=== PATIENT | male | born 1950 | race Caucasian/White ===

== ENCOUNTER 2019-09-17 20:44 | Inpatient (IN) | payer MEDICARE ==
[2019-09-17] MEDS ORDERED: ONDANSETRON 4 MG/2 ML VIAL IVP STA (22:06)
[2019-09-17] MEDS ORDERED: SODIUM CHLORIDE 0.9% 1,000 ML IV STA (22:06)
[2019-09-17] MEDS ORDERED: MORPHINE SULFATE 4 MG/ML SYRINGE IVP STA (22:07)
[2019-09-17] MEDS ORDERED: cloNIDine HCL 0.1 MG TAB PO STA (22:08)
[2019-09-17] MEDS ORDERED: DILTIAZEM DRIP BOLUS FROM BAG 1 MG SOLN IV ONE (22:10)
[2019-09-17] MEDS ORDERED: HEPARIN SODIUM,PORCINE 5,000 UNIT/ML 1 ML VIAL IV ONE (22:10)
[2019-09-17] MEDS ORDERED: HEPARIN SODIUM,PORCINE 5,000 UNIT/ML 1 ML VIAL IV PRN (22:10)
[2019-09-17] MEDS ORDERED: ONDANSETRON 4 MG/2 ML VIAL IVP PRN (22:12)
[2019-09-17] MEDS ORDERED: NALOXONE 0.4 MG/ML 1 ML VIAL IV PRN (22:12)
[2019-09-17] MEDS ORDERED: HEPARIN SOD,PORK IN 0.45% NACL 25,000 UNIT in 0.45% NACL 1 250ML.BAG IV SCH (22:15)
--- NOTE | 2019-09-17 22:29 | ED ---
Lower Extremity Injury HPI - General Chief Complaint: Extremity Injury, Lower Stated Complaint: R Femur Fracture Source: patient, EMS Mode of arrival: EMS Limitations: no limitations - History of Present Illness Initial Comments: Ayush is a 69-year-old gentleman who comes to the ER as a transfer from an outside facility. Patient reports that he fell out of his van today, it was not moving. He immediately had pain in his right hip. He was evaluated an outside hospital where imaging revealed a right femoral neck fracture. Patient states that he does not see a doctor regularly he is not on any medications he does not take aspirin daily. He states he was not drinking with that when this accident occurred he denies any head injury. Denies complaints aside from pain in the right hip. - Related Data Home Medications Medication Instructions Recorded Confirmed No Known Home Medications 09/17/19 09/17/19 Allergies Allergy/AdvReac Type Severity Reaction Status Date / Time No Known Allergies Allergy Verified 09/17/19 22:53 Review of Systems ROS Statement: Those systems with pertinent positive or pertinent negative responses have been documented in the HPI. ROS Other: All systems not noted in ROS Statement are negative. Past Medical History Past Medical History: Eye Disorder Additional Past Medical History / Comment(s): rt inguinal hernia and umbilical hernia, uses otc glasses to read History of Any Multi-Drug Resistant Organisms: None Reported Past Surgical History: Orthopedic Surgery Additional Past Surgical History / Comment(s): arthroscopic lt knee Past Anesthesia/Blood Transfusion Reactions: No Reported Reaction Additional Past Anesthesia/Blood Transfusion Reaction / Comment(s): no hx blood transfusion Past Psychological History: No Psychological Hx Reported Smoking Status: Current every day smoker Past Alcohol Use History: Daily, Heavy Past Drug Use History: Marijuana - Past Family History Mother Family Medical History: Asthma Father Family Medical History: Diabetes Mellitus, Vascular Disorder General Exam - General Exam Comments Initial Comments: Physical Exam GENERAL: Chronically ill-appearing 69-year-old gentleman appears mildly uncomfortable. HENT: Normocephalic, Atraumatic. EYES: PERRL, EOMI PULMONARY: Unlabored respirations. No audible rales rhonchi or wheezing was noted. CARDIOVASCULAR: Regular rate and rhythm ABDOMEN: Soft and nontender with normal bowel sounds. SKIN: Skin is clear with no lesions or rashes and otherwise unremarkable. : Deferred NEUROLOGIC: Patient is alert and oriented x3. Moving all extremities spontaneously MUSCULOSKELETAL: Right leg is shortened, range of motion limited by pain PSYCHIATRIC: Normal psychiatric evaluation. Limitations: no limitations Course Vital Signs 09/17/19 09/17/19 09/17/19 20:47 20:51 21:00 Temperature 98.5 F Pulse Rate 73 Respiratory 16 Rate Blood Pressure 217/119 210/115 O2 Sat by Pulse 100 91 L 94 L Oximetry 09/17/19 09/17/19 21:20 22:57 Temperature Pulse Rate 117 H Respiratory 16 Rate Blood Pressure 181/100 122/92 O2 Sat by Pulse 93 L 94 L Oximetry Medical Decision Making - Medical Decision Making The patient was seen and evaluated, history is obtained from patient and review of outside medical record. Patient had a fall out of his vehicle resulting in a right hip fracture. Patient was transferred here for orthopedic care. Upon my initial evaluation patient was mildly uncomfortable but in no acute distress. Labs and imaging were ordered in anticipation of operative repair. The patient was noted to be hypertensive with blood pressure of 180 systolic - patient states that when he checks his blood pressures usually around 200. He does not take any medications for this. He doesn't follow with a doctor for this. One hour after arrival patient developed tachycardia, EKG was obtained due to tachycardia, EKG obtained at 2203, EKG with a rate of 164 neuro complex irregularly irregular tachycardia consistent with A. fib with RVR. There is ST depression laterally no acute ST elevations. Additional labs including magnesium and troponins were ordered Patient will be treated with Cardizem and heparin. Unlikely the patient will undergo surgical repair tomorrow as he will require cardiac clearance. tolerated and blood pressure improved significantly with Cardizem. Patient to be admitted to the telemetry unit - Lab Data Result diagrams: 09/17/19 22:24 09/17/19 22:24 Disposition Clinical Impression: Fracture of hip, New onset a-fib, Atrial fibrillation with RVR, Hypertension Disposition: ADMITTED IP TO THIS HOSP Condition: Serious
[2019-09-17] MEDS ORDERED: DILTIAZEM 125 MG in SODIUM CHLORIDE 0.9% 100 ML IV SCH (22:30)
[2019-09-17 22:54] LABS: Basophils % (A) 0 %; Eosinophils % (A) 0 %; HGB 15.8 gm/dL (13.0-17.5); Lymphocytes # (A) 0.9 k/uL (1.0-4.8); Lymphocytes % (A) 11 %; MCH 29.4 pg (25.0-35.0); MCHC 32.9 g/dL (31.0-37.0); MCV 89.3 fL (80.0-100.0); Mean Platelet Volume 9.1; Monocytes # (A) 0.4 k/uL (0-1.0); Monocytes % (A) 5 %; Neutrophils # (A) 7.1 k/uL (1.3-7.7); Neutrophils % (A) 83 %; Platelet Count 166 k/uL (150-450); RBC 5.37 m/uL (4.30-5.90); RDW 13.2 % (11.5-15.5); WBC 8.6 k/uL (3.8-10.6)
[2019-09-17 23:00] LABS: Partial Thromboplastin Time 23.2 sec (22.0-30.0); Prothrombin Time 10.5 sec (9.0-12.0)
[2019-09-17 23:13] LABS: ALT 19 U/L (4-49); AST 39 U/L (17-59); African American GFR (CKD) >90 (>60 ml/min/1.73 sqM); Albumin 4.4 g/dL (3.5-5.0); Alkaline Phosphatase 74 U/L (38-126); Anion Gap 11 mmol/L; Blood Urea Nitrogen 18 mg/dL (9-20); Calcium 9.7 mg/dL (8.4-10.2); Carbon Dioxide 25 mmol/L (22-30); Chloride 102 mmol/L (98-107); Glucose 150 mg/dL (74-99); Magnesium 1.8 mg/dL (1.6-2.3); Non-African American GFR(CKD) >90 (>60 ml/min/1.73 sqM); Potassium 4.2 mmol/L (3.5-5.1); Sodium 138 mmol/L (137-145); Total Bilirubin 0.9 mg/dL (0.2-1.3); Total Protein 7.6 g/dL (6.3-8.2)
[2019-09-18] MEDS ORDERED: LORazepam 2 MG/ML INJ IV PRN ×3 (00:06)
--- NOTE | 2019-09-18 00:21 | P.HPIM ---
History of Present Illness H&P Date: 09/18/19 Chief Complaint: Right hip pain transferred from [place] The patient is a 69-year-old male with a past medical history of smoking and untreated hypertension that presented to [facility] after being transferred from [facility] where he had presented earlier today with chief complaint of right hip pain that began after a fall in the parking lot. Apparently the patient slept as it was wet out and hit his right hip and right side of his head, the patient denied any loss of consciousness denied any significant bruising. The patient denies any palpitations chest pain or shortness of breath he denies any lower extremity swelling he does report ch ronic alcohol consumption but has not had a drink for over a week. On presentation to [place] was noted to be hypertensive systolically in the 190s he was given a dose of labetalol and 2 doses of Dilaudid for pain control. Workup indicated a right-sided displaced femoral neck fracture and the patient was transferred here to see orthopedics. While in her ED the patient spontaneously went into A. fib with RVR with a rate in the 160s, he was immediately started on Cardizem drip and transferred to the telemetry monitoring unit. Review of records white count 6.8 hemoglobin 15.7 and platelets 155 serum sodium 138 potassium 3.8 bicarb 27 118 creatinine 0.8 AST PLT 13 and 19 total bili 0.8 Review of Systems Pertinent positives per HPI all other review of system otherwise negative Past Medical History Past Medical History: Eye Disorder Additional Past Medical History / Comment(s): rt inguinal hernia and umbilical hernia, uses otc glasses to read History of Any Multi-Drug Resistant Organisms: None Reported Past Surgical History: Orthopedic Surgery Additional Past Surgical History / Comment(s): arthroscopic lt knee Past Anesthesia/Blood Transfusion Reactions: No Reported Reaction Additional Past Anesthesia/Blood Transfusion Reaction / Comment(s): no hx blood transfusion Past Psychological History: No Psychological Hx Reported Smoking Status: Current every day smoker Past Alcohol Use History: Daily, Heavy Additional Past Alcohol Use History / Comment(s): 12 pk a day and sometimes 1/2 pint every other day of peppermint snapps or vodka- smoker since age 12(1961) 1/2-1 ppd Past Drug Use History: Marijuana Additional Drug Use History / Comment(s): uses 2-3 x a week - Past Family History Mother Family Medical History: Asthma Father Family Medical History: Diabetes Mellitus, Vascular Disorder Medications and Allergies Home Medications Medication Instructions Recorded Confirmed Type No Known Home Medications 09/17/19 09/17/19 History Allergies Allergy/AdvReac Type Severity Reaction Status Date / Time No Known Allergies Allergy Verified 09/17/19 22:53 Physical Exam Vitals: Vital Signs Temp Pulse Pulse Resp BP BP Pulse Ox 09/17/19 23:30 98.3 F 87 16 162/81 96 09/17/19 22:57 117 H 16 122/92 94 L 09/17/19 21:20 181/100 93 L 09/17/19 21:00 210/115 94 L 09/17/19 20:51 91 L 09/17/19 20:47 98.5 F 73 16 217/119 100 Intake and Output 09/17/19 09/17/19 09/18/19 14:59 22:59 06:59 Other: Weight 81.647 kg 81.647 kg Constitutional: No acute distress, conversant, pleasant Eyes: Anicteric sclerae, moist conjunctiva, no lid-lag, PERRLA ENMT: NC/AT,Oropharynx clear, no erythema, exudates Neck:Supple, FROM, no masses, or JVD, No carotid bruits; No thyromegaly Lungs: Clear to auscultation, Clear to percussion, Normal respiratory effort, no accessory muscle use Cardiovascular: Irregularly irregular tachycardic, No murmurs, gallops, or rubs no peripheral edema Abdominal: Soft Nontender, moderately distended and taut, no guarding, Normoactive bowel sounds No hepatomegaly, No splenomegaly, No palpable mass No abdominal wall hernia noted Skin: Normal temperature, tone, texture, turgor, No induration No subcutaneous nodules, No rash, lesions, No ulcers Extremities:No digital cyanosis No clubbing, Pedal pulses intact and symmetrical Radial pulses intact and symmetrical, unable to evaluate gait, No calf tenderness, EHL intact flexion and dorsiflexion intact, right leg externally rotated Psychiatric: Alert and oriented to person, place and time, Appropriate affect Intact judgement Neuro: Muscles Strength 5/5 in all 4 extremities, Sensation to light touch grossly present throughout, Cranial nerves II-XII grossly intact. No focal sensory deficits Results CBC & Chem 7: 09/17/19 22:24 09/17/19 22:24 Labs: Abnormal Lab Results - Last 24 Hours (Table) 09/17/19 09/17/19 Range/Units 22:24 22:24 Lymphocytes # 0.9 L (1.0-4.8) k/uL Glucose 150 H (74-99) mg/dL Assessment and Plan Assessment: New onset A. fib with RVR Hypertensive urgency Displaced right femoral neck fracture Chronic alcohol dependence Plan: The patient is admitted anticipated greater than 2 midnight stay with right femoral neck fracture after slipping fall that subsequently went into A. fib with RVR while in our ED, in the ER the patient was given a bolus of Cardizem and continued on drip to titrate to keep his heart rate below 100, along with anticoagulation with IV heparin drip. Will order stat CT of the head given history of head trauma, TSH, stat CBC CMP magnesium have been ordered and chest x-ray along with echocardiogram and plans for cardiology consultation. The patient is noted to be hypertensive we'll continue to monitor his blood pressure and consider adding a beta boyd to his regimen. Patient also placed on alcohol withdrawal protocol. Patient was treated supportively with IV fluids, antiemetics and morphine We'll continue to monitor his clinical course CODE STATUS full code Anticipated discharge: 2-[address]: Home versus retirement facility
--- NOTE | 2019-09-18 00:29 | XR ---
EXAMINATION TYPE: XR chest 1V DATE OF EXAM: 09/18/2019 COMPARISON: NONE HISTORY: Atrial fibrillation TECHNIQUE: Single view FINDINGS: There is no heart failure nor confluent pneumonic infiltrate. Costophrenic angles are clear . There are chest leads. Bony thorax is intact. IMPRESSION: No active cardiopulmonary disease. Normal heart.
--- NOTE | 2019-09-18 00:46 | CT ---
EXAMINATION TYPE: CT brain wo con DATE OF EXAM: 09/18/2019 COMPARISON: None HISTORY: Fall CT DLP: 1252.40 mGycm Automated exposure control for dose reduction was used. Multiple axial sections were obtained of the brain without contrast. There is cerebral cortical atrophy. There is patchy hypodensity in the periventricular white matter. There is no mass effect nor midline shift. There is no sign of intracranial hemorrhage. Calvarium is intact. IMPRESSION: Cerebral atrophy and chronic small vessel ischemia. No acute intracranial abnormality.
[2019-09-18 01:36] LABS: Alcohol <10 mg/dL
[2019-09-18] MEDS: MORPHINE SULFATE 4 MG/ML SYRINGE IVP PRN ×4 (04:06→20:28)
[2019-09-18 04:59] LABS: Basophils % (A) 0 %; Eosinophils % (A) 0 %; Lymphocytes # (A) 1.3 k/uL (1.0-4.8); Lymphocytes % (A) 15 %; MCH 30.2 pg (25.0-35.0); MCHC 33.3 g/dL (31.0-37.0); MCV 90.8 fL (80.0-100.0); Monocytes # (A) 0.5 k/uL (0-1.0); Monocytes % (A) 5 %; Neutrophils % (A) 79 %; Platelet Count 164 k/uL (150-450); RBC 4.95 m/uL (4.30-5.90); RDW 13.2 % (11.5-15.5); WBC 8.9 k/uL (3.8-10.6)
--- NOTE | 2019-09-18 08:47 | P.PN ---
Subjective Progress Note Date: 09/18/19 Principal diagnosis: fall Patient is a 69-year-old male past medical history of heavy alcohol use of 2 fifths per week, and tobacco abuse, and possible prior history of atrial fibrillation who presented initially to an outside emergency department after sustaining a fall and being unable to walk. He was found be hypertensive at [facility] and was given a dose of labetalol and Dilaudid for pain. He was subsequently found to have a right femur fracture was transferred to our facility. On arrival here he was found to be in A. fib with RVR. He was started on a Cardizem drip and heparin drip. He was admitted to the cardiac floor. He converted to normal sinus rhythm overnight on 09/17. Seen and examined at bedside. He complains of right hip pain but this is manageable at this point in time. He denies any chest pain, shortness breath, or palpitations. He reports he may have been told he had A. fib in the past but he is unsure. He states that normally at home he does all his own ADLs. He does go upstairs approximately 1-2 times weekly and does so without difficulty. He states he would easily have been able to walk 2 city blocks without chest pain, shortness of breath, dizziness, or syncope. He states he has been drinking heavily for years he believes his last drink was approximately 4 days ago. He states that 2 fifths last him approximately one week. Objective - Vital Signs Vital signs: Vital Signs Temp 98.3 F 09/17/19 23:30 Pulse 86 09/18/19 04:00 Resp 16 09/18/19 04:00 BP 123/49 09/18/19 04:00 Pulse Ox 92 L 09/18/19 04:00 Intake & Output 09/17/19 09/18/19 09/18/19 18:59 06:59 18:59 Intake Total 12.901 Balance 12.901 Weight 85.5 kg Intake: Intake, IV Titration 12.901 Amount Heparin Sod,Pork in 0.45% 12.901 NaCl 25,000 unit In 0.45 % NaCl 1 250ml.bag @ 12 UNITS/KG/HR 9.798 mls/hr IV .Q24H [facility] Rx#: [id number] Other: # Voids 1 - Exam General: non toxic, no distress, appears at stated age Derm: Multiple tattoos, warm, dry Head: atraumatic, normocephalic, symmetric Eyes: EOMI, no lid lag, anicteric sclera Mouth: no lip lesion, mucus membranes moist Cardiovascular: S1S2 reg, no murmur, positive posterior tibial pulse bilateral, Lungs: Decreased breath sounds bilateral, no rhonchi, no rales , no accessory muscle use Abdominal: soft, nontender to palpation, no guarding, no appreciable organo megaly Ext: no gross muscle atrophy, no edema, no contractures Neuro: CN II-XI grossly intact, no focal neuro deficits Psych: Alert, in the hospital but confused at length of stay - Labs CBC & Chem 7: 09/18/19 04:33 09/17/19 22:24 Labs: Abnormal Lab Results - Last 24 Hours (Table) 09/17/19 09/17/19 09/18/19 Range/Units 22:24 22:24 00:33 Lymphocytes # 0.9 L (1.0-4.8) k/uL APTT (22.0-30.0) sec Glucose 150 H (74-99) mg/dL TSH 6.420 H (0.465-4.680) mIU/L 09/18/19 Range/Units 04:33 Lymphocytes # (1.0-4.8) k/uL APTT 51.7 H (22.0-30.0) sec Glucose (74-99) mg/dL TSH (0.465-4.680) mIU/L Assessment and Plan Assessment: Right femoral fracture -Rest currently. Awaiting orthopedic evaluation -Pain control A. fib with RVR, newly discovered, now in normal sinus rhythm -Stop Cardizem and drip. Start metoprolol -Heparin will need to be stopped prior to surgery -Patient denies any other recurrent falls at home. -Telemetry -Cardiology consult -Await echocardiogram Mechanical fall - PT/OT once fracture is fixed - fall precuations Chronic alcohol abuse with impending DTs -CIWA protocol, thiamine, full acid -Start Librium 10 mg 3 times a day -Social work consult Tobacco abuse -Cessation -Nicotine replacement HTN urgency, resolved DVT prophylaxis: heparin gtt Discussed with: patient, nursing Anticipated discharge: 3-[address]: home with home health vs rehab A total of 35 minutes was spent on the care of this complex patient more than 50% of the time was spent in counseling and care coordination.
[2019-09-18] MEDS ORDERED: METOPROLOL TARTRATE 12.5 MG TAB PO SCH (09:00)
[2019-09-18] MEDS: FOLIC ACID 1 MG TAB PO SCH (09:37)
[2019-09-18] MEDS: MULTIVITAMINS, THERA 1 EACH TAB PO SCH (09:37)
--- NOTE | 2019-09-18 10:56 | XR ---
EXAMINATION TYPE: XR femur RT , 4 VIEWS DATE OF EXAM ORDERED: 09/18/2019 HISTORY: Femoral neck fracture. COMPARISON: None. FINDINGS: There is a low subcapital fracture of the right femur. There is degenerative change presen t in the right hip. There is vascular calcifications present. No additional fracture is seen. IMPRESSION: 1 SUBCAPITAL FRACTURE OF THE LEFT HIP WITH MODERATE ANGULATION. CODE A: INITIAL ENCOUNTER FOR CLOSED FRACTURE.
--- NOTE | 2019-09-18 11:37 | P.CRDCN ---
History of Present Illness History of present illness: HISTORY OF PRESENTING ILLNESS This is a pleasant 69-year-old male past medical history significant for daily heavy alcohol use and chronic nicotine dependence. He does not follow in the office with a financial coordinator for any reason. He thinks he may have seen someone in the past and undergone stress testing however he believes this was over 10-15 years ago. We have been asked to see in consultation for new onset atrial fibrillation. He presented to [facility] after suffering a fall from a vehicle. He states he was attempting to get out and he just fell to the ground hitting his right hip and head. He denies LOC. He denies feeling dizzy before falling. He does recall feeling some palpitations intermittently. He was initiated on cardizem infusion and has converted to sinus mechanism. He did also suffer a right hip fracture. He has not been seen by orthopedic surgery as of yet. He is seen and examined laying flat in bed in no acute distress. He denies chest pain, shortness of breath, dizziness or palpitations. His last alcoholic drink was over 1 week ago and usually drinks 2-3 times per day. DIAGNOSTICS EKG reveals atrial fibrillation with rapid ventricular rate of 164. Chest xray negative for an acute cardiopulmonary process. He takes no daily cardiac medications. REVIEW OF SYSTEMS At the time of my exam: CONSTITUTIONAL: Denies fever or chills. CARDIOVASCULAR: Denies chest pain, shortness of breath, orthopnea, PND or palpitations. RESPIRATORY: Denies cough. GASTROINTESTINAL: Denies abdominal pain, diarrhea, constipation, nausea or vomiting. MUSCULOSKELETAL: Complains of right hip pain. NEUROLOGIC: Denies numbness, tingling or weakness. ENDOCRINE: Denies fatigue, weight change, polydipsia or polyurina. GENITOURINARY: Denies burning, hematuria or urgency with micturation. HEMATOLOGIC: Denies history of anemia or bleeding. PHYSICAL EXAMINATION Blood pressure 123/49 heart rate 86 afebrile and maintaining oxygen saturation on room air. CONSTITUTIONAL: No apparent distress. HEENT: Head is normocephalic. Pupils are equal, round. Sclerae anicteric. Mucous membranes of the mouth are moist. No JVD. No carotid bruit. CHEST EXAMINATION: Faint expiratory wheeze. No chest wall tenderness is noted on palpation or with deep breathing. HEART EXAMINATION: Regular rate and rhythm. S1, S2 heard. Systolic ejection murmur at the left sternal border, no gallops or rub. ABDOMEN: Soft, nontender. Positive bowel sounds. EXTREMITIES: 2+ peripheral pulses, no lower extremity edema and no calf tenderness. NEUROLOGIC EXAMINATION: Patient is awake, alert and oriented x3. ASSESSMENT New onset paroxysmal atrial fibrillation with rapid ventricular response Mechanical fall Right hip fracture Chronic nicotine dependence Daily heavy alcohol use PLAN Repeat EKG. Discontinue cardizem and initiate on lopressor 25 mg TID. Echocardiogram has been ordered and will be reviewed. Discontinue heparin infusion, assisted anti-coagulation would be more of a detrimant due to his heavy alcohol use and falls. Clinically he is stable from a cardiac perspective. He is clinically euvolemic and free of angina. Recommend cautious fluid administration and optimal blood pressure control intra-operatively. There is no acute contraindication to undergo surgical intervention at this time, however he is increased risk due to co-morbid conditions. Alcohol and tobacco cessation recommended. May require CIWA monitoring. Thank you kindly for this consultation. Nurse Practitioner note has been reviewed, I agree with a documented findings and plan of care. Patient was seen and examined. Past Medical History Past Medical History: Eye Disorder Additional Past Medical History / Comment(s): rt inguinal hernia and umbilical hernia, uses otc glasses to read History of Any Multi-Drug Resistant Organisms: None Reported Past Surgical History: Orthopedic Surgery Additional Past Surgical History / Comment(s): arthroscopic lt knee Past Anesthesia/Blood Transfusion Reactions: No Reported Reaction Additional Past Anesthesia/Blood Transfusion Reaction / Comment(s): no hx blood transfusion Past Psychological History: No Psychological Hx Reported Smoking Status: Current every day smoker Past Alcohol Use History: Daily, Heavy Past Drug Use History: Marijuana - Past Family History Mother Family Medical History: Asthma Father Family Medical History: Diabetes Mellitus, Vascular Disorder Medications and Allergies Home Medications Medication Instructions Recorded Confirmed Type No Known Home Medications 09/17/19 09/17/19 History Allergies Allergy/AdvReac Type Severity Reaction Status Date / Time No Known Allergies Allergy Verified 09/17/19 22:53 Physical Exam Vitals: Vital Signs Temp Pulse Pulse Resp BP BP Pulse Ox 09/18/19 04:00 86 16 123/49 92 L 09/17/19 23:30 98.3 F 87 16 162/81 96 09/17/19 22:57 117 H 16 122/92 94 L 09/17/19 21:20 181/100 93 L 09/17/19 21:00 210/115 94 L 09/17/19 20:51 91 L 09/17/19 20:47 98.5 F 73 16 217/119 100 Intake and Output 09/17/19 09/18/19 09/18/19 22:59 06:59 14:59 Intake Total 12.901 Balance 12.901 Intake: Intake, IV Titration 12.901 Amount Heparin Sod,Pork in 0.45% 12.901 NaCl 25,000 unit In 0.45 % NaCl 1 250ml.bag @ 12 UNITS/KG/HR 9.798 mls/hr IV .Q24H [facility] Rx#: [id number] Other: # Voids 1 Weight 81.647 kg 85.5 kg Results 09/18/19 04:33 09/17/19 22:24 Cardiac Enzymes 09/17/19 09/17/19 09/18/19 Range/Units 22:24 22:24 00:33 AST 39 Cancelled (17-59) U/L Troponin I <0.012 (0.000-0.034) ng/mL Coagulation 09/17/19 09/18/19 Range/Units 22:24 04:33 PT 10.5 (9.0-12.0) sec APTT 23.2 51.7 H (22.0-30.0) sec CBC 09/17/19 09/18/19 Range/Units 22:24 04:33 WBC 8.6 8.9 (3.8-10.6) k/uL RBC 5.37 4.95 (4.30-5.90) m/uL Hgb 15.8 15.0 (13.0-17.5) gm/dL Hct 48.0 45.0 (39.0-53.0) % Plt Count 166 164 (150-450) k/uL Comprehensive Metabolic Panel 09/17/19 09/18/19 Range/Units 22:24 00:33 Sodium 138 Cancelled (137-145) mmol/L Potassium 4.2 Cancelled (3.5-5.1) mmol/L Chloride 102 Cancelled (98-107) mmol/L Carbon Dioxide 25 Cancelled (22-30) mmol/L BUN 18 Cancelled (9-20) mg/dL Creatinine 0.79 Cancelled (0.66-1.25) mg/dL Glucose 150 H Cancelled (74-99) mg/dL Calcium 9.7 Cancelled (8.4-10.2) mg/dL AST 39 Cancelled (17-59) U/L ALT 19 Cancelled (4-49) U/L Alkaline Phosphatase 74 Cancelled (38-126) U/L Total Protein 7.6 Cancelled (6.3-8.2) g/dL Albumin 4.4 Cancelled (3.5-5.0) g/dL Current Medications Generic Name Dose Route Start Last Admin Trade Name Freq PRN Reason Stop Dose Admin Chlordiazepoxide HCl 10 mg 09/18/19 09:00 Librium PO TID [facility] Folic Acid 1 mg 09/18/19 09:00 09/18/19 09:37 Folic Acid PO 1 mg DAILY [facility] Administration Heparin Sodium (Porcine) 0 unit 09/17/19 22:10 Heparin IV PER PROTOCOL PRN Low PTT Protocol Heparin Sodium/Sodium Chloride 250 mls @ 9.798 mls/hr 09/17/19 22:15 09/18/19 00:30 25,000 unit/ Sodium Chloride IV 12 units/kg/hr .Q24H [facility] 9.798 mls/hr Titration Protocol 12 UNITS/KG/HR Lorazepam 1 mg 09/18/19 00:06 Ativan IV Q2HR PRN CIWA 8 or 9 Lorazepam 1 mg 09/18/19 00:06 Ativan IV Q1HR PRN CIWA 10 to 15 Lorazepam 2 mg 09/18/19 00:06 Ativan IV 09/20/19 00:06 Q10M PRN CIWA 16 or higher Metoprolol Tartrate 12.5 mg 09/18/19 09:00 09/18/19 09:37 Lopressor PO 12.5 mg BID [facility] Administration Morphine Sulfate 4 mg 09/18/19 00:05 09/18/19 09:41 Morphine Sulfate (Inj) IVP 4 mg Q4HR PRN Administration Pain Multivitamins 1 each 09/18/19 09:00 09/18/19 09:37 Theragran PO 1 each DAILY [facility] Administration Naloxone HCl 0.2 mg 09/17/19 22:12 Narcan IV Q2M PRN Opioid Reversal Ondansetron HCl 4 mg 09/17/19 22:12 Zofran IVP Q8HR PRN Nausea And Vomiting Thiamine HCl 100 mg 09/18/19 17:30 Vitamin B-1 PO BID-W/MEALS [facility] Intake and Output 09/17/19 09/18/19 09/18/19 22:59 06:59 14:59 Intake Total 12.901 Balance 12.901 Intake: Intake, IV Titration 12.901 Amount Heparin Sod,Pork in 0.45% 12.901 NaCl 25,000 unit In 0.45 % NaCl 1 250ml.bag @ 12 UNITS/KG/HR 9.798 mls/hr IV .Q24H [facility] Rx#: [id number] Other: # Voids 1 Weight 81.647 kg 85.5 kg 09/18/19 04:33 09/18/19 00:33
[2019-09-18] MEDS ORDERED: HYDROcodone/APAP 5-325MG 1 EACH TAB PO PRN (11:40)
--- NOTE | 2019-09-18 11:52 | P.CNOR ---
History of Present Illness - HPI Consult date: 09/18/19 Consult reason: fracture History of present illness: Patient is seen and examined today at bedside. Patient is 69-year-old male who sustained a fall at home when he slipped on some ice walking at a store. He iwona d he is lying on the ground was unable to get up and was able look have his brother bring him to the hospital where he was found to have a right hip fracture. He was also found have uncontrolled hypertension with systolic in the 190s. The patient denies any loss of consciousness. He denies any chest pain or shortness of breath. Denies any problems with his hip in the past. He is normally a community ambulate without assistance. He he lives at home with his girlfriend and normally drives and gets around. He admits to drinking about 2/5 of alcohol each week. Patient admits to severe right hip pain at his groin. He denies any numbness tingling. He denies any pain in his left lower extremity denies any neck shoulders or arms. He denies any prior issues with his right hip. Review of Systems As stated in HPI. Denies chest pain shortness breath. Denies loss conscious. Denies any prior problems with his lower extremity. Denies change in bladder function. Past Medical History Past Medical History: Eye Disorder Additional Past Medical History / Comment(s): rt inguinal hernia and umbilical hernia, uses otc glasses to read, he says he has not been to his doctor in more than 5 years. History of Any Multi-Drug Resistant Organisms: None Reported Past Surgical History: Orthopedic Surgery Additional Past Surgical History / Comment(s): arthroscopic lt knee Past Anesthesia/Blood Transfusion Reactions: No Reported Reaction Additional Past Anesthesia/Blood Transfusion Reaction / Comm: no hx blood transfusion Past Psychological History: No Psychological Hx Reported Smoking Status: Current every day smoker Past Alcohol Use History: Daily, Heavy Past Drug Use History: Marijuana - Past Family History Mother Family Medical History: Asthma Father Family Medical History: Diabetes Mellitus, Vascular Disorder Medications and Allergies Home Medications Medication Instructions Recorded Confirmed Type No Known Home Medications 09/17/19 09/17/19 History Allergies Allergy/AdvReac Type Severity Reaction Status Date / Time No Known Allergies Allergy Verified 09/17/19 22:53 Physical Examination Osteopathic Statement: *. No significant issues noted on an osteopathic structural exam other than those noted in the History and Physical/Consult. - Hip right Gait: other (The patient's right lower extremity shortened and externally rotated. He has pain with any motion in his right hip particular with internal/external rotation.Nontender bilaterally. He has sustained dorsal flexion plantar flexion and EHL intact without 5 strength bilaterally. His abdomen is soft. His chest has good excursion deep inspiration and expiration his abdomen soft nontender. His upper extremity have good active and passive range of motion and are neurologically intact. His neck is nontender to palpation range of motion. HEENT is normocephalic atraumatic. His pulse is regular currently. He has normal systolic function currently. His blood pressures been better controlled but he was having severe uncontrolled hypertension with his pressure in the 190s on admit. He also had some issues with spontaneous atrial fibrillation but is now in sinus rhythm.) Results - Labs Labs: Abnormal Lab Results - Last 24 Hours (Table) 09/17/19 09/17/19 09/18/19 Range/Units 22:24 22:24 00:33 Lymphocytes # 0.9 L (1.0-4.8) k/uL APTT (22.0-30.0) sec Glucose 150 H (74-99) mg/dL TSH 6.420 H (0.465-4.680) mIU/L 09/18/19 Range/Units 04:33 Lymphocytes # (1.0-4.8) k/uL APTT 51.7 H (22.0-30.0) sec Glucose (74-99) mg/dL TSH (0.465-4.680) mIU/L H & H 09/17/19 09/18/19 Range/Units 22:24 04:33 Hgb 15.8 15.0 (13.0-17.5) gm/dL Hct 48.0 45.0 (39.0-53.0) % Coagulation 09/17/19 Range/Units 22:24 INR 1.0 (<1.2) Result Diagrams: 09/18/19 04:33 09/17/19 22:24 - Diagnostic results Hip x-ray: report reviewed, image reviewed (The patient had 2 views of his right hip had Elicia and x-rays of his femur here today. It shows a displaced femoral neck fracture with angulation and shortening.) Assessment and Plan Assessment: Right hip femoral neck fracture with displacement, acute due to a fall Spontaneous atrial fibrillation with current sinus rhythm on Cardizem Hypertension Plan: Right hip femoral neck fracture with displacement, acute due to a fall Spontaneous atrial fibrillation with current sinus rhythm on Cardizem Hypertension The patient sustained a fracture of his right femoral neck with displacement due to his fall. It is acute and is unable to mobilize due to this. In regard to the fracture the patient will require surgical fixation to allow him the best chance of regaining his mobility ambulation and independent status. Patient is unable to mobilize at all with the fracture. I discussed the nature of the injury with him and issues surrounding his hip fracture. We discussed various treatment options ranging from conservative to surgical. We discussed the risks, patient alternatives benefits of surgery including but not limited to the risk of bleeding risk of infection risk for further surgery risk of decreased loss of motion loss of function hardware failure nerve damage loss of independence loss of ambulatory status was all spine to him including the possibility of complications with surgery and anesthesia were explained. Patient elects to proceed with surgical intervention and will sign informed consent for right hip hemiarthroplasty. We will plan for surgical intervention for his right hip hemiarthroplasty FridaySeptember 19. The patient is currently in sinus rhythm but did have a bout of atrial fibrillat ion and hypertension. He is being managed on the telemetry floor with close management. He seems making some progress with his blood pressure and his cardiac rhythm. Cardiology is seeing him as well as medicine and hopefully he will be cleared for surgical intervention tomorrow morning.
--- NOTE | 2019-09-18 16:03 | ECHOF ---
Referral Reason:Afib w RVR MEASUREMENTS -------- HEIGHT: 177.8 cm WEIGHT: 81.6 kg BP: 123/49 RVIDd: 2.8 cm (< 3.3) IVSd: 1.3 cm (0.6 - 1.1) LVIDd: 3.9 cm (3.9 - 5.3) LVPWd: 1.2 cm (0.6 - 1.1) IVSs: 1.8 cm LVIDs: 2.9 cm LVPWs: 1.6 cm LA Diam: 2.7 cm (2.7 - 3.8) LAESV Index (A-L): 21.55 ml/m Ao Diam: 3.6 cm (2.0 - 3.7) AV Cusp: 2.0 cm (1.5 - 2.6) MV EXCURSION: 15.271 mm (> 18.000) MV EF SLOPE: 71 mm/s (70 - 150) EPSS: 1.0 cm MV E Octaviano: 0.92 m/s MV DecT: 240 ms MV A Octaviano: 1.06 m/s MV E/A Ratio: 0.87 AV maxP.52 mmHg AV meanP.51 mmHg FINDINGS -------- Sinus rhythm. This was a technically adequate study. The left ventricular size is normal. There is mild concentric left ventricular hypertrophy. Overa ll left ventricular systolic function is normal with, an EF between 60 - 65 %. The right ventricle is normal in size. Normal LA size by volume 22+/-6 ml/m2. The right atrium is normal in size. Lipomatous Hypertrophy of the atrial septum is present There is mild aortic valve sclerosis. There is mild aortic stenosis present. Peak/mean gradient a cross the Aortic Valve is 14.52mmHg / 7.51mmHg. The mitral valve is normal. The tricuspid valve appears structurally normal. The pulmonic valve was not well visualized. The aortic root size is normal. Normal inferior vena cava with normal inspiratory collapse consistent with estimated right atrial pre ssure of 5 mmHg. There is no pericardial effusion. CONCLUSIONS -------- 1. Sinus rhythm. 2. This was a technically adequate study. 3. The left ventricular size is normal. 4. There is mild concentric left ventricular hypertrophy. 5. Overall left ventricular systolic function is normal with, an EF between 60 - 65 %. 6. The right ventricle is normal in size. 7. Normal LA size by volume 22+/-6 ml/m2. 8. The right atrium is normal in size. 9. Lipomatous Hypertrophy of the atrial septum is present 10. There is mild aortic valve sclerosis. 11. There is mild aortic stenosis present. 12. Peak/mean gradient across the Aortic Valve is 14.52mmHg / 7.51mmHg. 13. The mitral valve is normal. 14. The tricuspid valve appears structurally normal. 15. The pulmonic valve was not well visualized. 16. The aortic root size is normal. 17. Normal inferior vena cava with normal inspiratory collapse consistent with estimated right atrial pressure of 5 mmHg. 18. There is no pericardial effusion. WHIPPER BEATER: Amarilys Talley RDCS
[2019-09-18] MEDS: THIAMINE 100 MG TAB PO SCH (16:57)
[2019-09-18] MEDS: METOPROLOL TARTRATE 25 MG TAB PO SCH ×2 (16:57→20:28)
[2019-09-18] MEDS: HEPARIN SODIUM,PORCINE 5,000 UNIT/ML 1 ML VIAL SQ SCH (19:47)
[2019-09-18] MEDS ORDERED: METOPROLOL TARTRATE 25 MG TAB PO SCH (21:00)
[2019-09-19 06:11] LABS: Basophils % (A) 0 %; Eosinophils # (A) 0.1 k/uL (0-0.7); Eosinophils % (A) 2 %; HCT 42.9 % (39.0-53.0); HGB 13.6 gm/dL (13.0-17.5); Lymphocytes # (A) 1.1 k/uL (1.0-4.8); Lymphocytes % (A) 13 %; MCH 29.5 pg (25.0-35.0); MCHC 31.7 g/dL (31.0-37.0); Mean Platelet Volume 9.1; Monocytes # (A) 0.5 k/uL (0-1.0); Monocytes % (A) 5 %; Neutrophils # (A) 6.6 k/uL (1.3-7.7); Neutrophils % (A) 78 %; Platelet Count 104 k/uL (150-450); RBC 4.61 m/uL (4.30-5.90); RDW 13.4 % (11.5-15.5); WBC 8.4 k/uL (3.8-10.6)
[2019-09-19] MEDS: THIAMINE 100 MG TAB PO SCH ×2 (06:18→17:54)
[2019-09-19] MEDS ORDERED: MIDAZOLAM 2 MG/2 ML VIAL ONE (08:00)
[2019-09-19] MEDS ORDERED: KETAMINE 10 MG/ML 20 ML VIAL ONE (08:00)
[2019-09-19] MEDS ORDERED: fentaNYL (PF) 50 MCG/ML 2 ML AMP ONE (08:00)
[2019-09-19] MEDS ORDERED: SODIUM CHLORIDE 0.9% 1,000 ML IV ONE ×2 (08:06→10:47)
[2019-09-19] MEDS ORDERED: ceFAZolin 3,000 MG in SODIUM CHLORIDE 0.9% IRRIGATIO 3,000 ML IRRIGATION ONE (08:49)
[2019-09-19] MEDS ORDERED: HYDROmorphone 0.5 MG/0.5 ML SYRINGE IVP PRN (10:31)
[2019-09-19] MEDS ORDERED: MAGNESIUM HYDROXIDE 2,400 MG/10 ML CUP PO PRN ×2 (10:31→10:32)
[2019-09-19] MEDS ORDERED: NALOXONE 0.4 MG/ML 1 ML VIAL IV PRN (10:32)
[2019-09-19] MEDS ORDERED: HYDROcodone/APAP 5-325MG 1 EACH TAB PO PRN (10:32)
--- NOTE | 2019-09-19 10:41 | P.OP ---
Date of Procedure: 09/19/19 Preoperative Diagnosis: Right hip acute femoral neck fracture due to fall with displaced and angulated fracture Postoperative Diagnosis: Same Anesthesia: GETA, spinal Pathology: other (Femoral head to pathology) Condition: stable Disposition: PACU Description of Procedure: Preoperative diagnosis: Right Femoral neck fracture with displacement and angulation due to a fall Postoperative diagnosis: Same Procedure: Right Hip hemiarthroplasty Surgeon: Dr. Juan De La Paz.: Steve Lucero who is present that the entire the case persistence during positioning dissection exposure placement of hardware and closure Anesthesia: Spinal per Dr. Hamilton Estimated blood loss: Approximately 200 mL Components implanted: [employer] press-fit collarless fracture stem size 5 with a 52 head and standard neck Disposition: To recovery room in good stable condition Operative indications The patient sustained a injury and suffered a femoral neck fracture which was displaced and angulated. We were involved in the case in regard to his hip fracture. The patient had episodes of spontaneous atrial fibrillation and was stabilized and managed with medicine and cardiology department and observed closely on telemetry. He had treatment and reverted to normal systolic rhythm and was stable with this. He is not having any cardiac symptoms and no hemodynamic compromise. We were evaluating him in terms of his hip fracture. He was found to have a displaced comminuted and angulated femoral neck fracture due to his fall. After evaluation it was determined that they would be a candidate for hip hemiarthroplasty via surgical intervention. This would give them the best chance of mobilization and ambulation. We discussed the range of treatment options from conservative to surgical. They elected proceed with surgical intervention. We answered their questions to the best of our ability healing which they can understand. We discussed all the risks, occasions alte rnatives and benefits at length in regards to his treatment options and in particularly with surgery. They signed an informed consent. Operative summary After obtaining informed consent evaluation by anesthesia, preoperative evaluation and clearance for medical service, the patient was identified and prepped Nava area and the surgical site was marked on the right. There brought to the operating room where the given appropriate anesthesia by the anesthesia department in standard fashion without any complications. He had a sterile spinal anesthetic performed appropriately. Once the anesthesia was established we were able to position the patient. There placed in a lateral decubitus position with the operative side up on the right being careful to pad any bony prominences and pressure points and place a excellent roll appropriately. The airway and C-spine was monitored continuously. Once patient was well positioned lower extremity was prepped and draped in normal standard sterile fashion. An appropriate keystone protocol and timeout was completed and were able to proceed with surgery. A curvilinear incision was established over the greater trochanter. Dissection was taken down to the tensor fascia myesha which was split in line with its fibers and extended proximally into the gluteal fibers. A Charnley retractor was established. The trochanteric bursa was inflamed and removed. I was able to then dissect down off the posterior aspect of the greater trochanter taking the piriformis tendon and the posterior capsule in one full-thickness flap and tacking it with suture. This expose the fracture at the femoral neck which was easily identified. A guide was used to establish the appropriate femoral neck cut and a bone- cutting saw was used to establish the femoral neck cut and good alignment and good position. All the bony fragments were removed. I was then able to use a corkscrew device to remove the femoral head from the acetabulum. Any loose fragments in the acetabulum were removed. The femoral head was measured for the appropriate size implant and then passed off for pathology. Appropriate retractors were placed and I established a lateral box cut chisel. I then used a starting reamer to establish the femoral canal area I then sequentially reamed with sequential reamers until we had good bony chatter distally. With this we then started to broach with sequential broaches to the appropriate sized to we had good fit and fill. There is no evidence any fracture in the proximal femur. With the appropriate size broach well seated and stable I placed the trial neck and head. I was able to extend up to a 5 size broach and get excellent stabilization and the proximal femur. A gentle reduction was performed to get good reduction. The hip was taken through a good range of motion and found to be stable in the position of sleep and through a range of motion. It had a good shuck test. We were able to then dislocate the trial prosthesis. The broach was found to remain stable. It was then removed. The wound was copiously irrigated and suctioned dry with pulsatile lavage. The appropriate size femoral stem of a size 5 with a standard neck and a 52 mm head was chosen and positioned and placed in good alignment and good position with excellent fit and fill seated appropriately over the calcar. It was checked and found to be stable. The trunnion was cleaned and dried the femoral head was then positioned over the femoral neck malleted in position checked and found to be stable. The hip prosthesis was then gently reduced back into the acetabulum and found to have excellent position and excellent stability and excellent range of motion with stability. There is no evidence of dislocation or fracture. The wound was copiously irrigated and suctioned dry. We are able to proceed with closure. The piriformis and posterior capsule were reapproximated to the posterior aspect of the greater trochanter with transosseous stitches. The wound was irrigated and suctioned dry. The fascia was closed with #2 Quill for watertight closure. Subcutaneous tissue was irrigated and suctioned dry. Subcu tissues closed with 2-0 Vicryl subcuticular tissue was closed with 30 Quill. Wound is clean and dried and dressed with Dermabond Adaptic 4 x 4's ABDs and tape. Drapes were broken down, the hip was held in stable position, and an abduction pillow was placed. The patient was then transferred back to their hospital bed being careful to maintain the hip and C-spine alignment and airway. Once stable to patient was transferred back to the postanesthesia care unit to be readmitted for pain control and DVT prophylaxis medical management and monitoring and mobilization we will continue follow patient closely throughout their postoperative course.
--- NOTE | 2019-09-19 10:44 | XR ---
EXAMINATION TYPE: XR Hip Limited RT , ONE VIEW DATE OF EXAM ORDERED: 09/19/2019 HISTORY: hemiartroplasty. COMPARISON: Preoperative study dated 09/18/2019. FINDINGS: The right hip hemiarthroplasty in place. Prosthetic elements appear in good position. IMPRESSION: STATUS POST RIGHT HIP HEMIARTHROPLASTY.
--- NOTE | 2019-09-19 12:07 | P.PN ---
Subjective HISTORY OF PRESENTING ILLNESS This is a pleasant 69-year-old male past medical history significant for daily heavy alcohol use and chronic nicotine dependence. He is seen and examined laying flat in bed in no acute distress. He underwent right hip hemiarthroplasty this morning. He is still quite sleepy from anesthesia. Breathing is stable. Blood pressure 116/57 heart rate 57 afebrile. Maintaining sinus mechanism. Echocardiogram revealed preserved LV systolic function with ejection fraction 60-65%, mild aortic valve sclerosis, mild aortic stenosis with a mean gradient of 7 mmHg. PHYSICAL EXAMINATION CONSTITUTIONAL: No apparent distress. HEENT: Head is normocephalic. Pupils are equal, round. Sclerae anicteric. Mucous membranes of the mouth are moist. No JVD. No carotid bruit. CHEST EXAMINATION: Clear to auscultation bilaterally. No wheezes, rhonchi or rales. No chest wall tenderness is noted on palpation or with deep breathing. HEART EXAMINATION: Regular rate and rhythm. S1, S2 heard. Systolic ejection murmur at the left sternal border, no gallops or rub. EXTREMITIES: 2+ peripheral pulses, no lower extremity edema and no calf tenderness. ASSESSMENT New onset paroxysmal atrial fibrillation with rapid ventricular response Mechanical fall Right hip fracture Aortic stenosis, mild Chronic nicotine dependence Daily heavy alcohol use PLAN Spontaneously converted to sinus mechanism. No long-term anticoagulation at this time secondary to daily alcohol use and frequent falls. Risk of thromboembolic event has been discussed with the patient in great detail. Ongoing medical management. Nurse Practitioner note has been reviewed, I agree with a documented findings and plan of care. Patient was seen and examined Objective - Vital Signs Vital signs: Vital Signs Temp 98.2 F 09/19/19 10:17 Pulse 57 L 09/19/19 10:46 Resp 18 09/19/19 10:46 BP 116/57 09/19/19 10:46 Pulse Ox 94 L 09/19/19 10:46 Intake & Output 09/18/19 09/19/19 09/19/19 18:59 06:59 18:59 Intake Total 120 851.5 Output Total 300 Balance 120 551.5 Weight 88 kg Intake: IV 851.5 Oral 120 Output: Urine 100 Estimated Blood Loss 200 Other: Voiding Method Urinal Urinal Indwelling Catheter Incontinent Incontinent # Voids 0 2 - Labs CBC & Chem 7: 09/19/19 05:40 09/17/19 22:24 Labs: Abnormal Lab Results - Last 24 Hours (Table) 09/19/19 Range/Units 05:40 Plt Count 104 L (150-450) k/uL
[2019-09-19] MEDS: ALBUTEROL NEBULIZED 2.5 MG/3 ML INHALATION PRN (12:08)
[2019-09-19] MEDS: HEPARIN SODIUM,PORCINE 5,000 UNIT/ML 1 ML VIAL SQ SCH (13:27)
[2019-09-19] MEDS: METOPROLOL TARTRATE 25 MG TAB PO SCH ×3 (13:28→22:14)
[2019-09-19] MEDS: FOLIC ACID 1 MG TAB PO SCH (13:28)
[2019-09-19] MEDS: MULTIVITAMINS, THERA 1 EACH TAB PO SCH (13:28)
[2019-09-19 14:27] LABS: Basophils % (A) 1 %; Eosinophils # (A) 0.1 k/uL (0-0.7); Eosinophils % (A) 1 %; HCT 41.2 % (39.0-53.0); HGB 13.4 gm/dL (13.0-17.5); Lymphocytes # (A) 1.7 k/uL (1.0-4.8); Lymphocytes % (A) 20 %; MCH 30.7 pg (25.0-35.0); MCHC 32.5 g/dL (31.0-37.0); MCV 94.4 fL (80.0-100.0); Mean Platelet Volume 9.6; Monocytes # (A) 0.5 k/uL (0-1.0); Monocytes % (A) 6 %; Neutrophils # (A) 5.8 k/uL (1.3-7.7); Neutrophils % (A) 70 %; Platelet Count 114 k/uL (150-450); RBC 4.36 m/uL (4.30-5.90); RDW 13.2 % (11.5-15.5); WBC 8.3 k/uL (3.8-10.6)
[2019-09-19 14:36] LABS: African American GFR (CKD) >90 (>60 ml/min/1.73 sqM); Anion Gap 7 mmol/L; Blood Urea Nitrogen 24 mg/dL (9-20); Calcium 8.4 mg/dL (8.4-10.2); Carbon Dioxide 23 mmol/L (22-30); Chloride 107 mmol/L (98-107); Glucose 103 mg/dL (74-99); Non-African American GFR(CKD) 88 (>60 ml/min/1.73 sqM); Potassium 4.7 mmol/L (3.5-5.1); Sodium 137 mmol/L (137-145)
[2019-09-19] MEDS: SODIUM CHLORIDE 0.9% 1,000 ML IV SCH ×2 (15:01→23:26)
[2019-09-19] MEDS: MORPHINE SULFATE 4 MG/ML SYRINGE IVP PRN (15:20)
--- NOTE | 2019-09-19 15:27 | P.PN ---
Subjective Progress Note Date: 09/19/19 (delayed charting seen at 1130) Principal diagnosis: fall Patient is a 69-year-old male past medical history of heavy alcohol use of 2 fifths per week, and tobacco abuse, and possible prior history of atrial fibrillation who presented initially to an outside emergency department after sustaining a fall and being unable to walk. He was found be hypertensive at [place] and was given a dose of labetalol and Dilaudid for pain. He was subsequently found to have a right femur fracture was transferred to our facility. On arrival here he was found to be in A. fib with RVR. He was started on a Cardizem drip and heparin drip. He was admitted to the cardiac floor. He converted to normal sinus rhythm overnight on 09/17. His heparin gtt was stopped due to need for surgery and poor candidate for intermediate accountant anticoagulation. Patient underwent right hip hemiarthroplasty without any immediate postoperative complications. Seen and examined at bedside. . Lethargic after surgery. Denies any chest pain, mild shortness of breath, no nausea, and headache. Falls back asleep. Objective - Vital Signs Vital signs: Vital Signs Temp 98.2 F 09/19/19 10:17 Pulse 58 L 09/19/19 12:19 Resp 18 09/19/19 10:46 BP 116/57 09/19/19 10:46 Pulse Ox 94 L 09/19/19 10:46 Intake & Output 09/18/19 09/19/19 09/19/19 18:59 06:59 18:59 Intake Total 120 851.5 Output Total 300 Balance 120 551.5 Weight 88 kg Intake: IV 851.5 Oral 120 Output: Urine 100 Estimated Blood Loss 200 Other: Voiding Method Urinal Urinal Indwelling Catheter Incontinent Incontinent # Voids 0 2 - Exam General: non toxic, no distress, appears at stated age Derm: Multiple tattoos, warm, dry Head: atraumatic, normocephalic, symmetric Eyes: EOMI, no lid lag, anicteric sclera Mouth: no lip lesion, mucus membranes moist Cardiovascular: S1S2 reg, no murmur, positive posterior tibial pulse bilateral, Lungs: wheeze bilateral , no accessory muscle use Abdominal: soft, nontender to palpation, no guarding, no appreciable organomegaly Ext: no gross muscle atrophy, no edema, no contractures Neuro: CN II-XI grossly intact, no focal neuro deficits Psych: lethargic, answering questions appropriately - Labs CBC & Chem 7: 09/19/19 13:58 09/19/19 13:58 Labs: Abnormal Lab Results - Last 24 Hours (Table) 09/19/19 09/19/19 09/19/19 Range/Units 05:40 13:58 13:58 Plt Count 104 L 114 L (150-450) k/uL BUN 24 H (9-20) mg/dL Glucose 103 H (74-99) mg/dL Assessment and Plan Assessment: Right femoral fracture s/p Right cheryl arthroplasty. Management per ortho surgery. Likely will need rehab on discharge. A. fib with RVR, newly discovered, now in normal sinus rhythm - Continue metoprolol -High risk for anticoagulation on a chcf basis -Telemetry -Cardiology recs appreciated -echocardiogram EF 60% Mechanical fall - PT/OT - fall precuations Chronic alcohol abuse with impending DTs -CIWA protocol, thiamine, full acid -Librium 10 mg 3 times a day, hold for sedataion -Social work consult Thrombocytopenia - likelt ETOH related - Follow CBC Tobacco abuse -Cessation -Nicotine replacement HTN urgency, resolved DVT prophylaxis: Lovenox Discussed with: patient, nursing Anticipated discharge: 2-[address]: home with home health vs rehab A total of 35 minutes was spent on the care of this complex patient more than 50% of the time was spent in counseling and care coordination.
[2019-09-19] MEDS: SENNOSIDES-DOCUSATE SODIUM 1 EACH TAB PO SCH (22:14)
[2019-09-20] MEDS: MORPHINE SULFATE 4 MG/ML SYRINGE IVP PRN ×2 (03:56→12:25)
[2019-09-20] MEDS: THIAMINE 100 MG TAB PO SCH ×2 (06:16→18:03)
[2019-09-20 06:52] LABS: Basophils % (A) 0 %; Eosinophils % (A) 0 %; HCT 36.6 % (39.0-53.0); HGB 12.2 gm/dL (13.0-17.5); Lymphocytes # (A) 1.1 k/uL (1.0-4.8); Lymphocytes % (A) 19 %; MCH 30.6 pg (25.0-35.0); MCHC 33.3 g/dL (31.0-37.0); Mean Platelet Volume 9.8; Monocytes # (A) 0.5 k/uL (0-1.0); Monocytes % (A) 9 %; Neutrophils # (A) 3.9 k/uL (1.3-7.7); Neutrophils % (A) 68 %; Platelet Count 109 k/uL (150-450); RBC 3.98 m/uL (4.30-5.90); WBC 5.7 k/uL (3.8-10.6)
[2019-09-20 06:55] LABS: African American GFR (CKD) >90 (>60 ml/min/1.73 sqM); Anion Gap 4 mmol/L; Blood Urea Nitrogen 19 mg/dL (9-20); Calcium 8.3 mg/dL (8.4-10.2); Carbon Dioxide 26 mmol/L (22-30); Chloride 106 mmol/L (98-107); Glucose 110 mg/dL (74-99); Non-African American GFR(CKD) >90 (>60 ml/min/1.73 sqM); Potassium 4.1 mmol/L (3.5-5.1); Sodium 136 mmol/L (137-145)
[2019-09-20] MEDS: ALBUTEROL NEBULIZED 2.5 MG/3 ML INHALATION PRN (07:09)
[2019-09-20] MEDS: MULTIVITAMINS, THERA 1 EACH TAB PO SCH (09:20)
[2019-09-20] MEDS: METOPROLOL TARTRATE 25 MG TAB PO SCH ×3 (09:20→20:48)
[2019-09-20] MEDS: SENNOSIDES-DOCUSATE SODIUM 1 EACH TAB PO SCH ×2 (09:20→20:49)
[2019-09-20] MEDS: ENOXAPARIN 40 MG/0.4 ML SYRINGE SQ SCH (09:21)
[2019-09-20] MEDS: FOLIC ACID 1 MG TAB PO SCH (09:21)
[2019-09-20] MEDS ORDERED: ACETAMINOPHEN TAB 325 MG TAB PO PRN (12:30)
--- NOTE | 2019-09-20 14:55 | XR ---
EXAMINATION TYPE: XR chest 1V portable DATE OF EXAM: 09/20/2019 COMPARISON: 09/18/2019 HISTORY: Cough and fever TECHNIQUE: Single frontal view of the chest is obtained. FINDINGS: Cardiomediastinal silhouette is enlarged and there is obscuration of the left hemidiaphrag m with retrocardiac airspace disease. Remainder the lungs are clear. Generalized osseous demineraliza tion and mild to moderate degenerative changes of the spine are also seen. IMPRESSION: Retrocardiac airspace disease that may represent pneumonia and Clinical setting.
--- NOTE | 2019-09-20 15:04 | P.PN ---
Subjective Chart was reviewed patient was seen examined. He does not have much of the complaints. He does have somewhat mild dry cough which is not new. No expectoration. No chest pain. No abdominal pain no dysuria or hematuria no diarrhea. He did have fever 1 time of 101 but without tachycardia leukocytosis and he appears comfortable. Objective - Vital Signs Vital signs: Vital Signs Temp 101.4 F H 09/20/19 12:15 Pulse 70 09/20/19 12:15 Resp 18 09/20/19 12:15 BP 158/82 09/20/19 12:15 Pulse Ox 96 09/20/19 12:15 Intake & Output 09/19/19 09/20/19 09/20/19 18:59 06:59 18:59 Intake Total 851.5 600 Output Total 950 800 Balance -98.5 -800 600 Weight 90 kg Intake: IV 851.5 Intake, IV Titration 600 Amount Sodium Chloride 0.9% 1, 600 000 ml @ 75 mls/hr IV . [id number] [facility] Rx#:[id number] Output: Urine 750 800 Uretheral (Nava) 700 Estimated Blood Loss 200 Other: Voiding Method Indwelling Catheter Indwelling Catheter Urinal Diaper # Voids 1 - Exam Vital Signs: I have reviewed the vital signs. GENERAL: no apparent distress, cooperative Eyes: PERRL, extraoculry movements intact, clear conjunctiva Head: : Atraumatic external nose and ears, oropharyngeal mucosa is moist with out lesions or exudates Neck: Symmetric, trachea midline, No thyromegaly, no masses or neck vain pulsation, no neck rigidity CVS: +S1/S2, No murmurs or gallops. Peripheral pulses 2+ and equal in all extremities. RESP: Unlabored respiratory effort. Diminished breath sounds no wheezing rhonchi or crackles. Abdomen: Bowel sounds present in all 4 quadrants, Soft to palpation, Nontender/Nondistended, No hepatosplenomegaly, no hernias or masses, no CVA tnderness Musculoskeletal: Extremities w/o deformity, No cyanosis or clubbing, no joint swelling Skin: Warm, Dry. No rashes or lesions Neuro: keeper head II-XII grossly intact, motor strenght 5/5 i upper and lower extremities, no clonus, patellar DTRs 2+ and sympetrical Psych: Awake, Alert, & Oriented (AAO) x3 Appropriate mood and affect - Labs CBC & Chem 7: 09/20/19 06:06 09/20/19 06:06 Labs: Abnormal Lab Results - Last 24 Hours (Table) 09/20/19 09/20/19 Range/Units 06:06 06:06 RBC 3.98 L (4.30-5.90) m/uL Hgb 12.2 L (13.0-17.5) gm/dL Hct 36.6 L (39.0-53.0) % Plt Count 109 L (150-450) k/uL Sodium 136 L (137-145) mmol/L Glucose 110 H (74-99) mg/dL Calcium 8.3 L (8.4-10.2) mg/dL Assessment and Plan Assessment: 1. Right femoral fracture s/p Right cheryl arthroplasty. Management per ortho surgery. Likely will need rehab on discharge. 2. Fever No tachycardia no hypotension no leukocytosis patient comfortable. Suspect to be due to atelectasis however since he's been hospitalized several day including the outside hospital we will obtain chest x-ray urine and blood cultures. 3. A. fib with RVR, newly discovered, now in normal sinus rhythm - Continue metoprolol -High risk for anticoagulation on a ep technologist basis -Telemetry -Cardiology recs appreciated -echocardiogram EF 60% 4. Mechanical fall - PT/OT - fall precuations 5. Chronic alcohol abuse with impending DTs -CIWA protocol, thiamine, full acid No clinical signs of withdrawal loss Start tapering off his Librium Thrombocytopenia - likelt ETOH related - Follow CBC Tobacco abuse -Cessation -Nicotine replacement HTN urgency, resolved DVT prophylaxis: Lovenox
--- NOTE | 2019-09-20 15:39 | P.PN ---
Progress Note - Text Progress Note Date: 09/20/19 Orthopedics: History of present illness: Patient is a very pleasant 69-year-old male seen and examined the bedside for follow-up evaluation for his right hip. He is status post right hip hemiarthroplasty performed on 09/19/2023 right femoral neck fracture with displacement and angulation status post fall. Postoperatively he feels his pain in his right hip has been actively controlled. He is eating at the bedside without difficulty. His Nava catheter has been discontinued. He has not been out of the bed yet this morning. He is waiting to work with physical therapy. He continues to be seen and examined by medicine and cardiology. Physical Exam Hip Hemiarthroplasty: Status post surgical day number 1 Patient is examined lying in bed Patient is awake, alert, and oriented 3 Vital signs stable Good chest excursion with deep inspiration and expiration No signs or symptoms of DVT; no calf pain Lower extremity cuffs in place bilaterally Abductor pillow intact Dressing of the right hip is clean, dry, and intact; no erythema, purulence, or signs of infection No significant pain with palpation over the surgical site Full range of motion of ankles bilaterally Dorsiflexion, plantarflexion, and extensor hallucis longus positive sustained bilaterally Neurovascularly intact bilateral lower extremities Capillary refill less than 2 seconds bilateral lower extremities Assessment: Status post right hip hemiarthroplasty for right femoral neck fracture with displacement and angulation Right hip pain Status post fall Atrial fibrillation with RVR at presentation now in normal sinus rhythm History of chronic alcohol abuse Tobacco abuse Thrombocytopenia Plan: 1. Patient may continue to weight-bear as tolerated on the right lower extremity; patient may work with physical therapy to increase mobility and ambulation 2. Continue pain control with oral [place] and IV Dilaudid 3. Abductor pillow to remain in place at all times except while working with therapy 4. Medicine to continue following the patient for their other medical issues 5. Continue with with anticoagulation therapy with Lovenox as prescribed by medicine 6. We'll continue to follow the patient 7. Depending on the patient's progress, we discussed he may need placement to a rehabilitation facility at the time of discharge. He continues to improve, we may plan for discharge as early as tomorrow, 09/21/2019, or 09/22/2019. Patient will need clearance by medicine and cardiology prior to discharge. 8. Patient can follow-up with Steve Du PA-C or Dr. Ilia Martinez at [facility] in 2-3 weeks following discharge
--- NOTE | 2019-09-20 19:56 | PN ---
PROGRESS NOTE Mr. Richardson is status post surgery for hip fracture. He has history of alcoholism. He is back in sinus rhythm. He was in atrial fibrillation when I first saw him. However, given his episodes of falls and severe alcoholism -- he drinks 3 times a day -- he is not reliable to be on anticoagulants. I will therefore continue current medical therapy and move him to medical floor. Vitals are stable. No JVD. S1, S2 heard normally. Short systolic murmur noted. Lungs reveal diminished air entry. Abdomen and lower extremity exam unchanged. We will see him as needed. MMODL / IJN: [id number] /
[2019-09-20] MEDS: HYDROcodone/APAP 5-325MG 1 EACH TAB PO PRN (20:48)
[2019-09-21] MEDS: HYDROcodone/APAP 5-325MG 1 EACH TAB PO PRN ×2 (03:18→09:16)
[2019-09-21 07:40] LABS: HCT 34.9 % (39.0-53.0); HGB 11.2 gm/dL (13.0-17.5); MCH 29.8 pg (25.0-35.0); MCHC 32.2 g/dL (31.0-37.0); MCV 92.4 fL (80.0-100.0); Mean Platelet Volume 9.1; Platelet Count 122 k/uL (150-450); RBC 3.78 m/uL (4.30-5.90); RDW 13.1 % (11.5-15.5); WBC 5.5 k/uL (3.8-10.6)
[2019-09-21 07:58] LABS: African American GFR (CKD) >90 (>60 ml/min/1.73 sqM); Anion Gap 3 mmol/L; Blood Urea Nitrogen 26 mg/dL (9-20); Calcium 8.4 mg/dL (8.4-10.2); Carbon Dioxide 29 mmol/L (22-30); Chloride 106 mmol/L (98-107); Glucose 109 mg/dL (74-99); Non-African American GFR(CKD) >90 (>60 ml/min/1.73 sqM); Sodium 138 mmol/L (137-145)
[2019-09-21 08:11] VITALS: BP 129/71; PULSE 65; RESP 16; TEMP 98.4
--- NOTE | 2019-09-21 08:45 | P.PN ---
Progress Note - Text Progress Note Date: 09/21/19 Orthopedics: History of present illness: Patient is a very pleasant 69-year-old male seen and examined the bedside for follow-up evaluation for his right hip. He is status post right hip hemiarthroplasty performed on 09/19/2023 right femoral neck fracture with displacement and angulation status post fall. Postoperatively he feels his pain in his right hip has been actively controlled. He is eating at the bedside without difficulty. His Nava catheter has been discontinued. He has not been out of the bed yet this morning. He does not feel he was out of bed yesterday. He is waiting to work with physical therapy. He continues to be seen and examined by medicine and cardiology. He has not been seen by social work for possible discharged to a rehabilitation facility. He continues to take [place] for pain control. Physical Exam Hip Hemiarthroplasty: Status post surgical day number 2 Patient is examined lying in bed Patient is awake, alert, and oriented 3 Vital signs stable Good chest excursion with deep inspiration and expiration No signs or symptoms of DVT; no calf pain Lower extremity cuffs in place bilaterally Abductor pillow intact Dressing of the right hip is clean, dry, and intact; no erythema, purulence, or signs of infection No significant pain with palpation over the surgical site Full range of motion of ankles bilaterally Dorsiflexion, plantarflexion, and extensor hallucis longus positive sustained bilaterally Neurovascularly intact bilateral lower extremities Capillary refill less than 2 seconds bilateral lower extremities Assessment: Status post right hip hemiarthroplasty for right femoral neck fracture with displacement and angulation Right hip pain Status post fall Atrial fibrillation with RVR at presentation now in normal sinus rhythm History of chronic alcohol abuse Tobacco abuse Thrombocytopenia Plan: 1. Patient may continue to weight-bear as tolerated on the right lower extremity; patient may work with physical therapy to increase mobility and ambulation 2. Continue pain control with oral [place] and IV Dilaudid; will plan to wean off IV Dilaudid in anticipation for discharge to rehabilitation facility once cleared by medicine MAPS has been reviewed today, 09/21/2019, with an Overall Overdose Risk Score of 000 with no prescriptions. An "Opiod Start Talking" form has been signed and placed in the patient's chart. A prescription has been written for [place] 5 mg/325 mg 1-2 tabs every 8 hours as needed for pain, dispense #42. Prescription was printed, signed, and placed in the patient's chart. Patient should avoid a nti-inflammatory medications over the next 6 weeks postoperatively. 3. Abductor pillow to remain in place at all times except while working with therapy 4. Medicine to continue following the patient for their other medical issues 5. Continue with with anticoagulation therapy with Lovenox as prescribed by medicine 6. We'll continue to follow the patient; we discussed patient may benefit from placement to a rehabilitation facility at time of discharge and the patient agrees. We will plan to consult social work to discuss rehabilitation placement. 7. From an orthopedic standpoint, patient is clear for discharge. Discharge will be pending discharge by medicine. 8. Patient can follow-up with Steve Du PA-C or Dr. Ilia Martinez at [facility] in 2-3 weeks following discharge
[2019-09-21] MEDS: FOLIC ACID 1 MG TAB PO SCH (09:16)
[2019-09-21] MEDS: THIAMINE 100 MG TAB PO SCH (09:16)
[2019-09-21] MEDS: MULTIVITAMINS, THERA 1 EACH TAB PO SCH (09:16)
[2019-09-21] MEDS: SENNOSIDES-DOCUSATE SODIUM 1 EACH TAB PO SCH (09:16)
[2019-09-21] MEDS: METOPROLOL TARTRATE 25 MG TAB PO SCH (09:16)
[2019-09-21] MEDS: ENOXAPARIN 40 MG/0.4 ML SYRINGE SQ SCH (09:17)
--- NOTE | 2019-09-21 12:13 | P.DS ---
Providers Date of admission: 09/17/19 22:12 Attending physician: Ethan Mcintosh MD Consults: 09/17/19 22:12 Consult Physician Urgent Consulting Provider: Siria Martinez Consult Reason/Comments: right fem neck fracture Do you want consulting provider notified?: Yes, Notify in am 09/18/19 00:04 Consult Physician Routine Consulting Provider: Almita Moon Consult Reason/Comments: Afib with RVR Do you want consulting provider notified?: Yes, Notify in am Primary care physician: Stated None Hospital Course: Date of admission: 09/17/2019 Date of discharge: 09/21/2019 Consultants: 1. Dr. Martinez orthopedic surgery 2. Dr. Jose Moses cardiology Admission diagnosis: Fall with right hip fracture and A. fib with RVR Discharge diagnosis: 1. Right hip fracture after fall 2. New-onset A. fib with RVR 3. Chronic alcoholism 4. Mild thrombocytopenia likely due to alcoholism, resolving 5. Mild postoperative anemia 6. Hypertension 7. Constipation Procedures: Right hip hemiarthroplasty on 09/19/2019 Other pertinent studies: Echocardiogram: EF 5560 % Mild LVH Mild aortic stenosis Reason for hospitalization and Hospital course: Patient is a 69-year-old male past medical history of heavy alcohol use of 2 fifths per week, and tobacco abuse, and possible prior history of atrial fibrillation who presented initially to an outside emergency department after sustaining a fall and being unable to walk. He was found be hypertensive at [place] and was given a dose of labetalol and Dilaudid for pain. He was subsequently found to have a right femur fracture was transferred to our facility. On arrival here he was found to be in A. fib with RVR. He was star andreas on a Cardizem drip and heparin drip. He was admitted to the cardiac floor. He converted to normal sinus rhythm overnight on 09/17. His heparin gtt was stopped due to need for surgery and poor candidate for business services tech anticoagulation. Patient underwent right hip hemiarthroplasty without any immediate postoperative complications. Disposition and discharge recommendations: 1. Right hip fracture DVT prophylaxis with Lovenox for 35 days with subsequent transition to aspirin Physical and occupational therapy Pain control: Try to minimize narcotics and wean off [place] Weight bearing as per orthopedic surgery recommendations, please see discharge departure form Follow-up with orthopedic surgery as scheduled Screening for osteoporosis on outpatient basis 2. A. fib with RVR Patient converted to normal sinus rhythm Treated with metoprolol currently 3 times a day; attention remains to be converted to longer acting medication prior to discharge from [facility] facility May titrate up metoprolol as blood pressure tolerates Not a candidate for anticoagulation due to alcoholism and frequent falls Follow-up in cardiology office in 2 weeks 3. Chronic alcoholism no signs of withdrawals here Last drink was about a week or so ago Counseling provided 4. Mild thrombocytopenia and postoperative anemia Thrombocytopenia likely related to alcoholism Resolving Platelets of discharge 122 Hemoglobin and discharge 11.2 5. Constipation Related to surgery Hospital stay and narcotics Ration was passing gas Tolerating diet Abdomen somewhat bloated but soft nontender positive bowel sounds Continue laxatives and stool softeners 6. Supportive care Monitor for signs of urinary retention Increase activity ambulation Avoid sedating medications 45 minutes spent on this discharge Patient Condition at Discharge: Serious Plan - Discharge Summary Discharge Rx Participant: No New Discharge Prescriptions: New Hydrocodone/Acetaminophen [[place] 5-325] 1 - 2 each PO Q8HR PRN #42 tab PRN Reason: Pain Metoprolol Tartrate [Lopressor] 25 mg PO TID tab Enoxaparin [Lovenox] 40 mg SQ DAILY syringe Magnesium Hydroxide [Milk of Magnesia Concentrate] 2,400 mg PO DAILY PRN ml PRN Reason: Constipation Multivitamins, Thera [Multivitamin (formulary)] 1 each PO DAILY tab Sennosides-Docusate Sodium [Senokot-S] 1 each PO DAILY tab Sennosides-Docusate Sodium [Senokot-S] 2 each PO HS tab Acetaminophen Tab [Tylenol] 650 mg PO Q6HR PRN tab PRN Reason: Fever And/ Or Pain Albuterol Nebulized [Ventolin Nebulized] 2.5 mg INHALATION RT-QID PRN nebu PRN Reason: Shortness Of Breath Or Wheezing Discharge Medication List Acetaminophen Tab [Tylenol] 650 mg PO Q6HR PRN tab 09/21/19 [Rx] Albuterol Nebulized [Ventolin Nebulized] 2.5 mg INHALATION RT-QID PRN nebu 09/21/19 [Rx] Enoxaparin [Lovenox] 40 mg SQ DAILY syringe 09/21/19 [Rx] Hydrocodone/Acetaminophen [[place] 5-325] 1 - 2 each PO Q8HR PRN #42 tab 09/21/19 [Rx] Magnesium Hydroxide [Milk of Magnesia Concentrate] 2,400 mg PO DAILY PRN ml 09/21/19 [Rx] Metoprolol Tartrate [Lopressor] 25 mg PO TID tab 09/21/19 [Rx] Multivitamins, Thera [Multivitamin (formulary)] 1 each PO DAILY tab 09/21/19 [Rx] Sennosides-Docusate Sodium [Senokot-S] 1 each PO DAILY tab 09/21/19 [Rx] Sennosides-Docusate Sodium [Senokot-S] 2 each PO HS tab 09/21/19 [Rx] Follow up Appointment(s)/Referral(s): Eleni Moses MD [STAFF PHYSICIAN] - 2 Weeks (Office will call with appointment date and time.) Steve Du PAC [PHYSICIAN SHAFT MECHANIC] - 10/05/19 9:00 am (Patient may follow-up with Steve Du PA-C or Dr. Ilia Martinez at [facility] in 2-3 weeks following discharge. ) None,Stated [Primary Care Provider] - 1-2 days Activity/Diet/Wound Care/Special Instructions: 1. Patient may ambulate as tolerated on the right lower extremity 2. Keep dressing over the right hip clean, dry, and intact 3. Patient may shower without a dressing intact if the incision continues to remain dry over the next 72 hours 4. Keep abductor pillow intact at all times while lying in bed; abductor pillow does not need to remain in place while sitting in bedside chair or working with physical therapy 5. Retained with anticoagulation as prescribed by medicine 6. Take medications as prescribed 7. Patient may apply ice over the surgical site for comfort support as needed Discharge Disposition: TRANSFER TO SNF/ECF
--- NOTE | 2019-09-21 12:28 | P.PN ---
Progress Note - Text [place] provided by ortho service for discharge. I reviewed MAPS system. Patient states he takes 1-2 Norcos a day at home. Side effects discussed and recommendation for lowes dose and shortest possible duration given to the patient and family.
== END 2019-09-21 13:40 | DRG 470 ==
LOC: EC 20:44 → 3SCARD 22:12 → 4SSUR 09-20 21:49
PROVIDERS: ADMIT Family Medicine; ATTEND Family Medicine
PROC: 0SRR0JA Replacement of Right Hip Joint, Femoral Surface with Synthetic Substitute, Uncemented, Open Approach (ICD-10-PCS; principal; 2019-09-19 08:00)
DX: S72.011A Unspecified intracapsular fracture of right femur, initial encounter for closed fracture (principal); F17.210 Nicotine dependence, cigarettes, uncomplicated; D64.9 Anemia, unspecified; D69.59 Other secondary thrombocytopenia; F10.20 Alcohol dependence, uncomplicated; Z71.41 Alcohol abuse counseling and surveillance of alcoholic; Z71.6 Tobacco abuse counseling; I10 Essential (primary) hypertension; I16.0 Hypertensive urgency; I35.0 Nonrheumatic aortic (valve) stenosis; I48.0 Paroxysmal atrial fibrillation; K59.03 Drug induced constipation; T40.605A Adverse effect of unspecified narcotics, initial encounter; Y92.481 Parking lot as the place of occurrence of the external cause; Z82.5 Family history of asthma and other chronic lower respiratory diseases; Z83.3 Family history of diabetes mellitus; V58.4XXA Person boarding or alighting a pick-up truck or van injured in noncollision transport accident, initial encounter
CPT/HCPCS: 70450; 71045; 73501; 80048; 80053; 80320; 83735; 84439; 84443; 84484; 85025; 85027; 85610; 85730; 86850; 86900; 86901; 87040; 88305; 88311; 93005; 93306; 94640; 94760; 96365; 96368; 96375; 96376; 99285

== ENCOUNTER 2019-09-28 16:41 | Inpatient (IN) | payer MEDICARE, OTHER ==
[2019-09-28] MEDS ORDERED: SODIUM CHLORIDE 0.9% 1,000 ML IV STA (17:13)
--- NOTE | 2019-09-28 17:22 | ED ---
General Adult HPI - General Chief complaint: Weakness Stated complaint: Weakness Time Seen by Provider: 09/28/19 16:47 Source: patient, EMS, RN notes reviewed Mode of arrival: EMS Limitations: no limitations - History of Present Illness Initial comments: Patient is a pleasant 69-year-old male presenting to the emergency department with concerns for generalized weakness. Patient was recently in the hospital with new-onset A. fib and right hip fracture. Patient was started on anticoagulation and decision was made not to fix the hip. Patient has had difficulty with transfers. Patient complains of discomfort of the right hip. Patient states his discomfort is as he would expect. Patient denies any confusion. No chest pain or difficulty breathing. Patient denies any isolated area of weakness. Patient states his regular pupil size is chronic. - Related Data Home Medications Medication Instructions Recorded Confirmed Albuterol Nebulized [Ventolin 2.5 mg INHALATION RT-Q6H PRN 09/28/19 09/28/19 Nebulized] Hydrocodone/Acetaminophen [[place] 1 - 2 tab PO Q8HR PRN 09/28/19 09/28/19 5-325] Metoprolol Tartrate [Lopressor] 25 mg PO TID@0500,1300,2100 09/28/19 09/28/19 Multivitamins, Thera [Multivitamin 1 tab PO DAILY 09/28/19 09/28/19 (formulary)] Sennosides-Docusate Sodium 2 tab PO DAILY 09/28/19 09/28/19 [Senokot-S] Sennosides-Docusate Sodium 2 tab PO HS 09/28/19 09/28/19 [Senokot-S] Previous Rx's Medication Instructions Recorded Acetaminophen Tab [Tylenol] 650 mg PO Q6HR PRN tab 09/21/19 Enoxaparin [Lovenox] 40 mg SQ DAILY syringe 09/21/19 Magnesium Hydroxide [Milk of 2,400 mg PO DAILY PRN ml 09/21/19 Magnesia Concentrate] Allergies Allergy/AdvReac Type Severity Reaction Status Date / Time No Known Allergies Allergy Verified 09/28/19 17:14 Review of Systems ROS Statement: Those systems with pertinent positive or pertinent negative responses have been documented in the HPI. ROS Other: All systems not noted in ROS Statement are negative. Constitutional: Denies: fever Eyes: Denies: eye pain ENT: Denies: ear pain Respiratory: Denies: cough, dyspnea Cardiovascular: Denies: chest pain Endocrine: Denies: fatigue Gastrointestinal: Denies: abdominal pain Genitourinary: Denies: dysuria Musculoskeletal: Reports: arthralgia Skin: Denies: rash Neurological: Denies: weakness Past Medical History Past Medical History: Eye Disorder Additional Past Medical History / Comment(s): rt inguinal hernia and umbilical hernia, uses otc glasses to read, he says he has not been to his doctor in more than 5 years. History of Any Multi-Drug Resistant Organisms: None Reported Past Surgical History: Orthopedic Surgery Additional Past Surgical History / Comment(s): arthroscopic lt knee Past Anesthesia/Blood Transfusion Reactions: No Reported Reaction Additional Past Anesthesia/Blood Transfusion Reaction / Comment(s): no hx blood transfusion Past Psychological History: No Psychological Hx Reported Smoking Status: Current every day smoker Past Alcohol Use History: Daily, Heavy Past Drug Use History: Marijuana - Past Family History Mother Family Medical History: Asthma Father Family Medical History: Diabetes Mellitus, Vascular Disorder General Exam Limitations: no limitations General appearance: alert, in no apparent distress Head exam: Present: normocephalic Eye exam: Present: other (Dilated left pupil) ENT exam: Present: normal oropharynx Neck exam: Present: normal inspection Respiratory exam: Present: normal lung sounds bilaterally Cardiovascular Exam: Present: regular rate, normal rhythm. Absent: irregular rhythm GI/Abdominal exam: Present: soft. Absent: tenderness Extremities exam: Present: other (Minimal tenderness right hip. Range of motion testing and right hip limited by discomfort. Distally the extremity is neurovascular intact.) Neurological exam: Present: alert, oriented X3, CN II-XII intact (Except left pupil dilated and fixed). Absent: motor sensory deficit Expanded Speech: Present: fluid speech Motor strength exam: RUE: 5, LUE: 5, LLE: 5 Eye Response: (4) open spontaneously Motor Response: (6) obeys commands Verbal Response: (5) oriented Psychiatric exam: Present: normal affect, normal mood Skin exam: Present: normal color Course Vital Signs 09/28/19 09/28/19 09/28/19 16:47 17:00 17:30 Temperature 98.9 F Pulse Rate 59 L 56 L 56 L Respiratory 16 20 20 Rate Blood Pressure 164/94 164/94 185/83 O2 Sat by Pulse 98 97 97 Oximetry 09/28/19 09/28/19 18:00 18:30 Temperature Pulse Rate 60 58 L Respiratory 20 18 Rate Blood Pressure 117/72 138/79 O2 Sat by Pulse 98 96 Oximetry EKG Findings - EKG Comments: EKG Findings:: Sinus bradycardia 59. NJ 140. QRS 82. QT 474. QTC 469. Normal axis. Normal QRS. No acute ST change. Medical Decision Making - Medical Decision Making Patient reevaluated and resting comfortably in bed. Patient updated on results and plan. Secondary to reported slurred speech from earlier case was discussed in detail with Dr. Leung, who will admit covering for Dr. Dunne. Neurology will be placed on consult. - Lab Data Result diagrams: 09/28/19 16:50 09/28/19 16:50 Lab Results 09/28/19 09/28/19 09/28/19 Range/Units 16:50 16:50 16:50 WBC 5.3 (3.8-10.6) k/uL RBC 4.13 L (4.30-5.90) m/uL Hgb 12.1 L (13.0-17.5) gm/dL Hct 38.3 L (39.0-53.0) % MCV 92.7 (80.0-100.0) fL MCH 29.2 (25.0-35.0) pg MCHC 31.5 (31.0-37.0) g/dL RDW 13.3 (11.5-15.5) % Plt Count 308 (150-450) k/uL Neutrophils % 61 % Lymphocytes % 25 % Monocytes % 7 % Eosinophils % 3 % Basophils % 2 % Neutrophils # 3.2 (1.3-7.7) k/uL Lymphocytes # 1.3 (1.0-4.8) k/uL Monocytes # 0.4 (0-1.0) k/uL Eosinophils # 0.2 (0-0.7) k/uL Basophils # 0.1 (0-0.2) k/uL PT 10.0 (9.0-12.0) sec INR 1.0 (<1.2) APTT 24.0 (22.0-30.0) sec Sodium 138 (137-145) mmol/L Potassium 4.4 (3.5-5.1) mmol/L Chloride 104 (98-107) mmol/L Carbon Dioxide 27 (22-30) mmol/L Anion Gap 7 mmol/L BUN 20 (9-20) mg/dL Creatinine 0.65 L (0.66-1.25) mg/dL Est GFR (CKD-EPI)AfAm >90 (>60 ml/min/1.73 sqM) Est GFR (CKD-EPI)NonAf >90 (>60 ml/min/1.73 sqM) Glucose 94 (74-99) mg/dL Plasma Lactic Acid Dennis (0.7-2.0) mmol/L Calcium 8.9 (8.4-10.2) mg/dL Magnesium 2.1 (1.6-2.3) mg/dL Total Bilirubin 0.9 (0.2-1.3) mg/dL AST 57 (17-59) U/L ALT 45 (4-49) U/L Alkaline Phosphatase 118 (38-126) U/L Troponin I (0.000-0.034) ng/mL Total Protein 6.5 (6.3-8.2) g/dL Albumin 3.3 L (3.5-5.0) g/dL 09/28/19 09/28/19 Range/Units 16:50 17:25 WBC (3.8-10.6) k/uL RBC (4.30-5.90) m/uL Hgb (13.0-17.5) gm/dL Hct (39.0-53.0) % MCV (80.0-100.0) fL MCH (25.0-35.0) pg MCHC (31.0-37.0) g/dL RDW (11.5-15.5) % Plt Count (150-450) k/uL Neutrophils % % Lymphocytes % % Monocytes % % Eosinophils % % Basophils % % Neutrophils # (1.3-7.7) k/uL Lymphocytes # (1.0-4.8) k/uL Monocytes # (0-1.0) k/uL Eosinophils # (0-0.7) k/uL Basophils # (0-0.2) k/uL PT (9.0-12.0) sec INR (<1.2) APTT (22.0-30.0) sec Sodium (137-145) mmol/L Potassium (3.5-5.1) mmol/L Chloride (98-107) mmol/L Carbon Dioxide (22-30) mmol/L Anion Gap mmol/L BUN (9-20) mg/dL Creatinine (0.66-1.25) mg/dL Est GFR (CKD-EPI)AfAm (>60 ml/min/1.73 sqM) Est GFR (CKD-EPI)NonAf (>60 ml/min/1.73 sqM) Glucose (74-99) mg/dL Plasma Lactic Acid Dennis 1.9 (0.7-2.0) mmol/L Calcium (8.4-10.2) mg/dL Magnesium (1.6-2.3) mg/dL Total Bilirubin (0.2-1.3) mg/dL AST (17-59) U/L ALT (4-49) U/L Alkaline Phosphatase (38-126) U/L Troponin I <0.012 (0.000-0.034) ng/mL Total Protein (6.3-8.2) g/dL Albumin (3.5-5.0) g/dL - Radiology Data Radiology results: report reviewed (Computed tomography scan of the brain shows small vessel ischemia. Atrophy. No acute intercranial abnormality.), image reviewed (Chest x-ray shows small left effusion, improved. Normal heart. Pelvis x-ray shows no fracture. Hip prosthesis.) Disposition Clinical Impression: Slurring of speech, Weakness Disposition: ADMITTED IP TO THIS HOSP Is patient prescribed a controlled substance at d/c from ED?: No Referrals: Porfirio Dunne DO [Primary Care Provider] - 1-2 days Decision Time: 20:12
[2019-09-28 17:36] LABS: Basophils # (A) 0.1 k/uL (0-0.2); Basophils % (A) 2 %; Eosinophils # (A) 0.2 k/uL (0-0.7); Eosinophils % (A) 3 %; HCT 38.3 % (39.0-53.0); HGB 12.1 gm/dL (13.0-17.5); Lymphocytes # (A) 1.3 k/uL (1.0-4.8); Lymphocytes % (A) 25 %; MCH 29.2 pg (25.0-35.0); MCHC 31.5 g/dL (31.0-37.0); MCV 92.7 fL (80.0-100.0); Mean Platelet Volume 8.6; Monocytes # (A) 0.4 k/uL (0-1.0); Monocytes % (A) 7 %; Neutrophils # (A) 3.2 k/uL (1.3-7.7); Neutrophils % (A) 61 %; Platelet Count 308 k/uL (150-450); RBC 4.13 m/uL (4.30-5.90); RDW 13.3 % (11.5-15.5); WBC 5.3 k/uL (3.8-10.6)
[2019-09-28 17:48] LABS: ALT 45 U/L (4-49); AST 57 U/L (17-59); African American GFR (CKD) >90 (>60 ml/min/1.73 sqM); Albumin 3.3 g/dL (3.5-5.0); Alkaline Phosphatase 118 U/L (38-126); Anion Gap 7 mmol/L; Blood Urea Nitrogen 20 mg/dL (9-20); Calcium 8.9 mg/dL (8.4-10.2); Carbon Dioxide 27 mmol/L (22-30); Chloride 104 mmol/L (98-107); Glucose 94 mg/dL (74-99); Magnesium 2.1 mg/dL (1.6-2.3); Non-African American GFR(CKD) >90 (>60 ml/min/1.73 sqM); Potassium 4.4 mmol/L (3.5-5.1); Sodium 138 mmol/L (137-145); Total Bilirubin 0.9 mg/dL (0.2-1.3); Total Protein 6.5 g/dL (6.3-8.2)
--- NOTE | 2019-09-28 18:16 | XR ---
EXAMINATION TYPE: XR pelvis AP view DATE OF EXAM: 09/28/2019 COMPARISON: NONE HISTORY: Hip pain TECHNIQUE: Single view FINDINGS: There is right hip prosthesis. Pelvic ring is intact. Proximal left femur is intact. Sacroi liac joints appear normal. There is no evidence of a fracture. IMPRESSION: No fracture seen. Hip prosthesis appears in good position.
--- NOTE | 2019-09-28 18:18 | XR ---
EXAMINATION TYPE: XR chest 2V DATE OF EXAM: 09/28/2019 COMPARISON: 09/20/2019 HISTORY: Cough and fever TECHNIQUE: FINDINGS: Heart and mediastinum are normal. There is blunting of left costophrenic angle. Heart size is normal. Bony thorax is intact. IMPRESSION: There is small left pleural effusion improved compared to last exam. Normal heart.
--- NOTE | 2019-09-28 18:44 | CT ---
EXAMINATION TYPE: CT brain wo con DATE OF EXAM: 09/28/2019 COMPARISON: 09/18/2019 HISTORY: Weakness and fall. CT DLP: 1201.4 mGycm Automated exposure control for dose reduction was used. There is some cerebral cortical atrophy. There is no mass effect nor midline shift. There is no sign of intracranial hemorrhage. There is patchy hypodensity in the periventricular white matter. Calvariu m appears intact. IMPRESSION: Chronic small vessel ischemia. Cerebral atrophy. No acute intracranial abnormality. No change.
[2019-09-28] MEDS ORDERED: ASPIRIN 325 MG TAB PO STA (20:12)
[2019-09-28] MEDS ORDERED: ALBUTEROL NEBULIZED 2.5 MG/3 ML INHALATION PRN (21:42)
[2019-09-28] MEDS ORDERED: ACETAMINOPHEN TAB 325 MG TAB PO PRN (21:42)
[2019-09-28] MEDS ORDERED: MAGNESIUM HYDROXIDE 2,400 MG/10 ML CUP PO PRN (21:42)
[2019-09-28] MEDS: SODIUM CHLORIDE 0.9% 1,000 ML IV SCH (21:44)
[2019-09-28] MEDS: HYDROcodone/APAP 5-325MG 1 EACH TAB PO PRN (21:49)
[2019-09-29] MEDS: SODIUM CHLORIDE 0.9% 1,000 ML IV SCH (04:01)
[2019-09-29] MEDS: METOPROLOL TARTRATE 25 MG TAB PO SCH ×3 (05:07→20:23)
[2019-09-29 06:43] LABS: Cholesterol 109 mg/dL (<200); HDL Cholesterol 21 mg/dL (40-60); LDL Cholesterol,Calculated 55 mg/dL (0-99); Triglycerides 163 mg/dL (<150)
[2019-09-29] MEDS: SENNOSIDES-DOCUSATE SODIUM 1 EACH TAB PO SCH (08:55)
[2019-09-29] MEDS: MULTIVITAMINS, THERA 1 EACH TAB PO SCH (08:55)
[2019-09-29] MEDS: ENOXAPARIN 40 MG/0.4 ML SYRINGE SQ SCH (08:55)
[2019-09-29] MEDS: HYDROcodone/APAP 5-325MG 1 EACH TAB PO PRN ×2 (08:55→20:23)
[2019-09-29] MEDS: ASPIRIN 325 MG TAB PO SCH (08:55)
--- NOTE | 2019-09-29 11:38 | P.CNNES ---
History of Present Illness Consult date: 09/29/19 Requesting physician: Yaakov Carmona Reason for Consult: Slurred speech and weakness History of Present Illness: Patient is a 69-year-old male, with history of alcoholism, who suffered from right hip fracture about a week ago. Patient states he has been having episodes of slurred speech, off and on for the past 1 week. Patient states that sometimes it clears up fast, and at other times it stays "for a while". He was also brought to the hospital for generalized weakness. Patient also has been diagnosed with paroxysmal atrial fibrillation in the past, but is not on any anticoagulants because of history of alcoholism. Patient has history of hypertension but denies diabetes. Patient has history of smoking 1 pack per day for 50 years. He states that he has drank a fifth of a ROM or water, a day for 15 years, cutback alcoholism about 2 weeks ago. Patient states that once he gets out of the hospital, he plans to limit his alcohol, about half of a fifth a day. He does not appear to be willing to stop alcohol ism. Patient apparently suffered from a fall in a parking lot on 09/17/2019, and suffered from right femoral neck fracture. He was diagnosed with spontaneous atrial fibrillation with rapid ventricular rate and was treated with Cardizem drip. Patient underwent right hip hemiarthroplasty on 09/19/2019. Patient was initially placed on heparin drip, but was discontinued as he was felt a poor candidate for long-term anticoagulation because of alcoholism and frequent falls. Patient had an EKG, which showed sinus bradycardia, with non-specific T wave abnormality. Chest x-ray showed small left pleural effusion, improved as compared to the last exam. Computed tomography scan of head showed chronic small vessel ischemia. Cerebral atrophy. No acute process. On my review, there is evidence of multiple old lacunes involving the frontal subcortical white matter and periventricular region. Patient's blood test shows WBC 5.3 hemoglobin 12.1 and platelets are 308. PT/PTT is normal. Chem-7 normal. LFTs normal. Patient's total cholesterol is 109, LDL 55, HDL 21 and triglycerides 163. Patient's last TSH is elevated 6.42 and free T4 normal 1.30. Patient had a 2-D echo on 09/18/2019, which revealed sinus rhythm, mild concentric LVH, EF 60-65%. Lipomatous hypertrophy of the atrial septum. Mild aortic valve sclerosis. Mild aortic stenosis. Patient's pelvic x-ray shows no fracture. Hip prosthesis appears in good position Review of Systems Right leg swelling, hip pain. Alcoholism. Numbness of the right foot. Right leg weakness. Denies chest pain shortness of breath wheezing or cough. Denies diplopia or loss of vision. Denies headache. Past Medical History Past Medical History: Atrial Fibrillation, Eye Disorder Additional Past Medical History / Comment(s): rt inguinal hernia and umbilical hernia, uses otc glasses to read, he says he has not been to his doctor in more than 5 years. right hip fx no intervention according to pt. History of Any Multi-Drug Resistant Organisms: None Reported Past Surgical History: Orthopedic Surgery Additional Past Surgical History / Comment(s): arthroscopic lt knee Past Anesthesia/Blood Transfusion Reactions: No Reported Reaction Additional Past Anesthesia/Blood Transfusion Reaction / Comment(s): no hx blood transfusion Past Psychological History: No Psychological Hx Reported Smoking Status: Current every day smoker Past Alcohol Use History: Daily, Heavy Additional Past Alcohol Use History / Comment(s): 12 pk a day and sometimes 1/2 pint every other day of peppermint snapps or vodka- smoker since age 12(2) 1/2-1 ppd Past Drug Use History: Marijuana Additional Drug Use History / Comment(s): uses 2-3 x a week - Past Family History Mother Family Medical History: Asthma Father Family Medical History: Diabetes Mellitus, Vascular Disorder Medications and Allergies Home Medications Medication Instructions Recorded Confirmed Type Acetaminophen Tab [Tylenol] 650 mg PO Q6HR PRN tab 09/21/19 09/28/19 Rx Enoxaparin [Lovenox] 40 mg SQ DAILY syringe 09/21/19 09/28/19 Rx Magnesium Hydroxide [Milk of 2,400 mg PO DAILY PRN ml 09/21/19 09/28/19 Rx Magnesia Concentrate] Albuterol Nebulized [Ventolin 2.5 mg INHALATION RT-Q6H PRN 09/28/19 09/28/19 History Nebulized] Hydrocodone/Acetaminophen [[place] 1 - 2 tab PO Q8HR PRN 09/28/19 09/28/19 History 5-325] Metoprolol Tartrate [Lopressor] 25 mg PO TID@0500,1300,2100 09/28/19 09/28/19 History Multivitamins, Thera [Multivitamin 1 tab PO DAILY 09/28/19 09/28/19 History (formulary)] Sennosides-Docusate Sodium 2 tab PO DAILY 09/28/19 09/28/19 History [Senokot-S] Sennosides-Docusate Sodium 2 tab PO HS 09/28/19 09/28/19 History [Senokot-S] Allergies Allergy/AdvReac Type Severity Reaction Status Date / Time No Known Allergies Allergy Verified 09/28/19 17:14 Physical Examination - Vital Signs Vital Signs: Vital Signs Temp Pulse Pulse Resp BP BP Pulse Ox 09/29/19 08:34 97 09/29/19 08:30 97.3 F L 51 L 16 148/84 94 L 09/29/19 03:15 98.7 F 57 L 18 144/71 95 09/28/19 23:22 99.3 F 51 L 18 140/74 97 09/28/19 20:00 72 20 118/97 98 09/28/19 19:00 80 20 143/77 97 09/28/19 18:30 58 L 18 138/79 96 09/28/19 18:00 60 20 117/72 98 09/28/19 17:30 56 L 20 185/83 97 09/28/19 17:00 56 L 20 164/94 97 09/28/19 16:47 98.9 F 59 L 16 164/94 98 Intake and Output 09/28/19 09/29/19 09/29/19 22:59 06:59 14:59 Intake Total 400 Balance 400 Intake: Intake, IV Titration 400 Amount Sodium Chloride 0.9% 1, 400 000 ml @ 100 mls/hr IV . Q10H [facility] Rx#:[id number] Other: Voiding Method Incontinent Incontinent Weight 88.451 kg 84 kg On examination patient is an elderly male, in no acute distress. He is alert and awake fairly well oriented. Speech and language functions are normal. Attention and concentration fund of knowledge is adequate. On cranial examination pupils are round and reactive to light, visual anderson are full on confrontation with no neglect. Extraocular muscles intact. Face is symmetric and tongue protrudes the midline. Palatal elevation sensation normal on muscle strength testing there is no pronator drift and the strength is normal in both arms and distally and proximally. His left leg is also normal. On the right side of his ankle is very weak that about 3 and all over. His toe extension and flexion is also weak as well as plantarflexion. Reflexes are 2+ in both upper limbs, 3 at the right knee, 2+ on the left. Ankles are absent and plantars are equivocal bilaterally. Sensory touch is decreased in the right leg ankle below. No ataxia for [id number] testing. Tone of muscles normal. He has significant peripheral edema of the right lower extremity. Results - Laboratory Findings CBC and BMP: 09/28/19 16:50 09/28/19 16:50 Abnormal Lab Findings: Abnormal Labs 09/28/19 09/28/19 09/29/19 16:50 16:50 05:21 RBC 4.13 L Hgb 12.1 L Hct 38.3 L Creatinine 0.65 L Albumin 3.3 L Triglycerides 163 H HDL Cholesterol 21 L Assessment and Plan Assessment: * 69-year-old male admitted with recurrent slurred speech. Patient also has right leg weakness, likely due to central process. Patient has history of paroxysmal atrial fibrillation, currently not on anti-coagulation because of risk of falls, and history of alcoholism. * Recent history of right hip fracture, status post right hip hemiarthroplasty on 09/19/2019. * Hypertension * Paroxysmal atrial fibrillation * Alcoholism * Tobacco user Plan: * Patient is experiencing recurrent slurred speech, concerning for TIAs. At present patient appears to be a high risk for having recurrent strokes/TIAs because of his paroxysmal atrial fibrillation. * I would suggest starting anticoagulation, at least as of now. He probably will not be able to walk independently for some time because of right leg weakness. Until he is not drinking, and is not walking independently, patient can be safely placed on anti-coagulation. Subsequently he can follow-up with his primary physician and stripper soft plastic regarding safety of continuing anticoagulation. * We will check ultrasound of the right lower extremity to rule out DVT. * We will check carotid Doppler. * Neurology will follow.
--- NOTE | 2019-09-29 13:09 | US ---
EXAMINATION TYPE: US venous doppler duplex LE RT DATE OF EXAM: 09/29/2019 12:21 PM COMPARISON: NONE CLINICAL HISTORY: Right leg swelling, rule out DVT. Edema SIDE PERFORMED: Right TECHNIQUE: The lower extremity deep venous system is examined utilizing real time linear array sonog swetha with graded compression, doppler sonography and color-flow sonography. VESSELS IMAGED: External Iliac Vein (EIV) Common Femoral Vein Deep Femoral Vein Greater Saphenous Vein * Femoral Vein Popliteal Vein Small Saphenous Vein * Proximal Calf Veins (* superficial vessels) Right Leg: Negative for DVT IMPRESSION: 1. No diagnostic evidence of DVT.
--- NOTE | 2019-09-29 13:28 | US ---
EXAMINATION TYPE: US carotid duplex BILAT DATE OF EXAM: 09/29/2019 COMPARISON: NONE CLINICAL HISTORY: TIA . TIA slurred speach EXAM MEASUREMENTS: RIGHT: Peak Systolic Velocity (PSV) cm/sec ----- Right CCA: 71.1 ----- Right ICA: 109.7 ----- Right ECA: 54.8 ICA/CCA ratio: 1.5 RIGHT: End Diastole cm/sec ----- Right CCA: 12.9 ----- Right ICA: 22.5 ----- Right ECA: 0 LEFT: Peak Systolic Velocity (PSV) cm/sec ----- Left CCA: 100.0 ----- Left ICA: 90.3 ----- Left ECA: 64.4 ICA/CCA ratio: 0.9 LEFT: End Diastole cm/sec ----- Left CCA: 16.0 ----- Left ICA: 20.8 ----- Left ECA: 6.3 VERTEBRALS (direction of flow): Right Vertebral: Antegrade Left Vertebral: Antegrade Rhythm: Normal Bilateral plaque visualized. No significant stenosis seen IMPRESSION: 1. Bilateral atherosclerotic plaque with no significant hemodynamic stenosis as visualized. Criteria for Assigning % of Stenosis / Diameter reduction (Estimation based on the indirect measurements of the internal carotid artery velocities (ICA PSV). 1. Normal (no stenosis)=ICA PSV < 125 cm/s: ratio < 2.0: ICA EDV<40 cm/s. 2. Less than 50% stenosis=ICA PSV < 125 cm/s: ratio < 2.0: ICA EDV<40 cm/s. 3. 50 to 69% stenosis=ICA PSV of 125 to 230 cm/s: ration 2.0 ? 4.0: ICA EDV 40-100 cm/s. 4. Greater than 70% stenosis to near occlusion= ICA PSV > 230 cm/s: ratio > 4.0: ICA EDV > 100 cm/s. 5. Near occlusion= ICA PSV velocities may be low or undetectable: variable ratio and ICA EDV. 6. Total occlusion=unable to detect flow.
[2019-09-29] MEDS ORDERED: SENNOSIDES-DOCUSATE SODIUM 1 EACH TAB PO SCH (21:00)
--- NOTE | 2019-09-30 01:40 | P.HPIM ---
History of Present Illness H&P Date: 09/29/19 Chief Complaint: Weakness History of presenting complaint: This is a 69-year-old patient be followed with Dr. Dunne. Recently in the hospital. Chronic stable medical conditions include atrial fibrillation, hypertension,. On September 19 patient had undergone a right hip hemiarthroplasty by Dr. Escalante from [facility]. Patient was then sent to inpatient rehab. Patient had been long-standing alcoholic and a smoker. Patient was sent in because he was found on equal pupil that may be chronic actually and also feeling weak. She'll himself is a poor historian and is not why she has been brought here. He denies any new focal symptoms. Because being a poor historian was sent in for further workup or his family doctor. Urology was consulted. Review of systems: GEN.: Tired EYES: None HEENT: None NECK: None RESPIRATORY: Baseline shortness of breath CARDIOVASCULAR: None GASTROINTESTINAL: None GENITOURINARY: None MUSCULOSKELETAL: Joint pains LYMPHATICS: None HEMATOLOGICAL: None PSYCHIATRY: Forgetful NEUROLOGICAL: None Past medical history to include: It'll fibrillation, alcoholism, smoker, hypertension, poor memory Social history: Continue to inpatient rehab. Was a heavy's smoker and alcoholic tell recently. Physical examination: VITAL SIGNS: 98.9, 59, 16, 164/94, 98% room air GENERAL: [26.6, laying in bed awake tired. EYES: Left pupil is larger. Conjunctiva normal. HEENT: External appearance of nose and ears normal, oral cavity grossly normal. NECK: JVD not raised; masses not palpable. HEART: First and second heart sounds are normal; no edema. LUNGS: Respiratory rate increased, decreased breath sounds some wheezing. ABDOMEN: Soft, nontender, liver spleen not palpable, no masses palpable. PSYCH: Patient didn't tell his name, not sure why he is here his think a lot before saying the year or the monthl. 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 Given that patient is supple why setting he should be able to get anticoagulated. Other medications to continue. Carotid Doppler to be done. [facility] Past Medical History Past Medical History: Atrial Fibrillation, Eye Disorder Additional Past Medical History / Comment(s): rt inguinal hernia and umbilical hernia, uses otc glasses to read, he says he has not been to his doctor in more than 5 years. right hip fx no intervention according to pt. History of Any Multi-Drug Resistant Organisms: None Reported Past Surgical History: Orthopedic Surgery Additional Past Surgical History / Comment(s): arthroscopic lt knee Past Anesthesia/Blood Transfusion Reactions: No Reported Reaction Additional Past Anesthesia/Blood Transfusion Reaction / Comment(s): no hx blood transfusion Past Psychological History: No Psychological Hx Reported Smoking Status: Current every day smoker Past Alcohol Use History: Daily, Heavy Additional Past Alcohol Use History / Comment(s): 12 pk a day and sometimes 1/2 pint every other day of peppermint snapps or vodka- smoker since age 12(1962) 1 /2-1 ppd Past Drug Use History: Marijuana Additional Drug Use History / Comment(s): uses 2-3 x a week - Past Family History Mother Family Medical History: Asthma Father Family Medical History: Diabetes Mellitus, Vascular Disorder Medications and Allergies Home Medications Medication Instructions Recorded Confirmed Type Acetaminophen Tab [Tylenol] 650 mg PO Q6HR PRN tab 09/21/19 09/28/19 Rx Enoxaparin [Lovenox] 40 mg SQ DAILY syringe 09/21/19 09/28/19 Rx Magnesium Hydroxide [Milk of 2,400 mg PO DAILY PRN ml 09/21/19 09/28/19 Rx Magnesia Concentrate] Albuterol Nebulized [Ventolin 2.5 mg INHALATION RT-Q6H PRN 09/28/19 09/28/19 History Nebulized] Hydrocodone/Acetaminophen [Collyer 1 - 2 tab PO Q8HR PRN 09/28/19 09/28/19 History 5-325] Metoprolol Tartrate [Lopressor] 25 mg PO TID@0500,1300,2100 09/28/19 09/28/19 History Multivitamins, Thera [Multivitamin 1 tab PO DAILY 09/28/19 09/28/19 History (formulary)] Sennosides-Docusate Sodium 2 tab PO DAILY 09/28/19 09/28/19 History [Senokot-S] Sennosides-Docusate Sodium 2 tab PO HS 09/28/19 09/28/19 History [Senokot-S] Allergies Allergy/AdvReac Type Severity Reaction Status Date / Time No Known Allergies Allergy Verified 09/28/19 17:14 Physical Exam Vitals: Vital Signs Temp Pulse Pulse Resp BP Pulse Ox 09/30/19 00:32 97.6 F 52 L 18 142/68 97 09/29/19 20:34 97.3 F L 61 16 178/73 98 09/29/19 20:18 62 09/29/19 20:04 66 97 09/29/19 15:40 97.3 F L 52 L 18 142/88 98 09/29/19 11:05 51 L 18 129/61 97 09/29/19 08:34 97 09/29/19 08:30 97.3 F L 51 L 16 148/84 94 L 09/29/19 03:15 98.7 F 57 L 18 144/71 95 Intake and Output 09/29/19 09/29/19 09/30/19 14:59 22:59 06:59 Intake Total 480 450 Balance 480 450 Intake: Oral 480 450 Other: Voiding Method Incontinent Incontinent Incontinent # Voids 1 Results CBC & Chem 7: 09/28/19 16:50 09/28/19 16:50 Labs: Abnormal Lab Results - Last 24 Hours (Table) 09/29/19 Range/Units 05:21 Triglycerides 163 H (<150) mg/dL HDL Cholesterol 21 L (40-60) mg/dL Thrombosis Risk Factor Assmnt - Choose All That Apply Each Factor Represents 1 point: Obesity (BMI >25) Each Risk Factor Represents 2 Points: Age 61-74 years Thrombosis Risk Factor Assessment Total Risk Factor Score: 3 Thrombosis Risk Factor Assessment Level: Moderate Risk
[2019-09-30] MEDS: METOPROLOL TARTRATE 25 MG TAB PO SCH ×2 (04:29→13:01)
[2019-09-30 05:50] VITALS: TEMP 98
[2019-09-30] MEDS: SODIUM CHLORIDE 0.9% 1,000 ML IV SCH ×2 (08:40→08:45)
[2019-09-30] MEDS: SENNOSIDES-DOCUSATE SODIUM 1 EACH TAB PO SCH (08:50)
[2019-09-30] MEDS: MULTIVITAMINS, THERA 1 EACH TAB PO SCH (08:50)
[2019-09-30] MEDS: ASPIRIN 325 MG TAB PO SCH (08:50)
[2019-09-30] MEDS: ENOXAPARIN 40 MG/0.4 ML SYRINGE SQ SCH (08:50)
[2019-09-30 08:54] VITALS: RESP 16
--- NOTE | 2019-09-30 12:38 | P.PN ---
Subjective Progress Note Date: 09/30/19 Patient is laying comfortably in the bed, somewhat diagonally. States he gets slurred speech off and on. No new focal symptoms otherwise. Patient continues to have significant weakness of the right leg as compared to the left. Patient still limited monitoring has been normal sinus rhythm, although at night it did bradycardia down to 33 at one time. Objective - Vital Signs Vital signs: Vital Signs Temp 98 F 09/30/19 04:24 Pulse 59 L 09/30/19 08:00 Resp 16 09/30/19 11:57 BP 163/80 09/30/19 08:00 Pulse Ox 97 09/30/19 08:24 Intake & Output 09/29/19 09/30/19 09/30/19 18:59 06:59 18:59 Intake Total 720 210 Balance 720 210 Weight 83 kg Intake: Oral 720 210 Other: Voiding Method Incontinent Incontinent Incontinent # Voids 1 1 # Bowel Movements 1 - Exam Patient is alert and awake. Not in distress. Speech is mildly dysarthric. No aphasia. Patient has visuospatial apraxia. He probably has some cognitive impairment. Speech therapy has seen the patient and is recommending continued speech therapy. Patient continues to have weakness of the right leg distally. - Labs CBC & Chem 7: 09/28/19 16:50 09/28/19 16:50 Assessment and Plan Assessment: * 69-year-old male admitted with recurrent slurred speech. Patient also has right leg weakness, likely due to central process. Patient has history of paroxysmal atrial fibrillation, currently not on anti-coagulation because of risk of falls, and history of alcoholism. * Recent history of right hip fracture, status post right hip hemiarthroplasty on 09/19/2019. * Hypertension * Paroxysmal atrial fibrillation, currently in normal sinus rhythm. * Alcoholism * Tobacco user Plan: * Patient is experiencing recurrent slurred speech, concerning for TIAs. At present patient appears to be a high risk for having recurrent strokes/TIAs because of his paroxysmal atrial fibrillation. * I would suggest starting anticoagulation, at least as of now. He probably will not be able to walk independently for some time because of right leg weakness. Until he is not drinking, and is not walking independently, patient can be safely placed on anti-coagulation. Subsequently he can follow-up with his primary physician and manager event regarding safety of continuing anticoagulation. * Utrasound of the right lower extremity was negative for DVT. * Carotid Doppler showed no significant stenosis, antegrade flow in both vertebral arteries.
[2019-09-30 13:05] VITALS: PULSE 58
--- NOTE | 2019-09-30 15:25 | P.DS ---
Providers Date of admission: 09/30/19 10:08 Expected date of discharge: 09/30/19 Attending physician: Bob Leung Consults: 09/28/19 20:13 Consult Physician Urgent Consulting Provider: Ankur Jeffrey Consult Reason/Comments: Reported slurred speech and weakness Do you want consulting provider notified?: Yes [facility] care [facility] Course: Chief Complaint: Weakness Hospital course: This is a 69-year-old patient be followed with Dr. Dunne. Recently in the hospital. Chronic stable medical conditions include atrial fibrillation, hypertension,. On September 19 patient had undergone a right hip hemiarthroplasty by Dr. Escalante from [facility]. Patient was then sent to inpatient rehab. Patient had been long-standing alcoholic and a smoker. Patient was sent in because he was found on equal pupil that may be chronic actually and also feeling weak. She'll himself is a poor historian and is not why she has been brought here. He denies any new focal symptoms. Because being a poor historian was sent in for further workup or his family doctor. Neurology-felt the patient had recurrent TIA. Given the patient's risk of fall he's in a monitored setting. To be started on anticoagulation. Consultation: Dr. Don Davies from neurology Physical examination: VITAL SIGNS: 98.9, 59, 16, 164/94, 98% room air GENERAL: , laying in bed awake tired. EYES: Left pupil is larger. Conjunctiva normal. HEENT: External appearance of nose and ears normal, oral cavity grossly normal. NECK: JVD not raised; masses not palpable. HEART: First and second heart sounds are normal; no edema. LUNGS: Respiratory rate increased, decreased breath sounds some wheezing. ABDOMEN: Soft, nontender, liver spleen not palpable, no masses palpable. PSYCH: Patient didn't tell his name, not sure why he is here his think a lot before saying the year or the monthl. NEUROLOGICAL: Left pupil larger than the right no facial asymmetry, able to move all his limbs. 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 -Essential hypertension -Recent right hip hemiarthroplasty Plan: [facility] Plan - Discharge Summary New Discharge Prescriptions: No Action Enoxaparin [Lovenox] 40 mg SQ DAILY syringe Magnesium Hydroxide [Milk of Magnesia Concentrate] 2,400 mg PO DAILY PRN ml PRN Reason: Constipation Acetaminophen Tab [Tylenol] 650 mg PO Q6HR PRN tab PRN Reason: Fever And/ Or Pain Multivitamins, Thera [Multivitamin (formulary)] 1 tab PO DAILY Sennosides-Docusate Sodium [Senokot-S] 2 tab PO DAILY Sennosides-Docusate Sodium [Senokot-S] 2 tab PO HS Metoprolol Tartrate [Lopressor] 25 mg PO TID@0500,1300,2100 Albuterol Nebulized [Ventolin Nebulized] 2.5 mg INHALATION RT-Q6H PRN PRN Reason: Shortness Of Breath Or Wheezing Hydrocodone/Acetaminophen [Pipestem 5-325] 1 - 2 tab PO Q8HR PRN PRN Reason: Pain Discharge Medication List Acetaminophen Tab [Tylenol] 650 mg PO Q6HR PRN tab 09/21/19 [Rx] Enoxaparin [Lovenox] 40 mg SQ DAILY syringe 09/21/19 [Rx] Magnesium Hydroxide [Milk of Magnesia Concentrate] 2,400 mg PO DAILY PRN ml 09/21/19 [Rx] Albuterol Nebulized [Ventolin Nebulized] 2.5 mg INHALATION RT-Q6H PRN 09/28/19 [History] Hydrocodone/Acetaminophen [Pipestem 5-325] 1 - 2 tab PO Q8HR PRN 09/28/19 [History] Metoprolol Tartrate [Lopressor] 25 mg PO TID@0500,1300,2100 09/28/19 [History] Multivitamins, Thera [Multivitamin (formulary)] 1 tab PO DAILY 09/28/19 [History] Sennosides-Docusate Sodium [Senokot-S] 2 tab PO DAILY 09/28/19 [History] Sennosides-Docusate Sodium [Senokot-S] 2 tab PO HS 09/28/19 [History] Follow up Appointment(s)/Referral(s): Porfirio Dunne DO [Primary Care Provider] - 1-2 days
[2019-09-30 15:27] VITALS: BP 152/60
== END 2019-09-30 17:36 | DRG 69 ==
LOC: EC 16:41 → 3SCARD 20:12 → OBSVTOIN 09-30 10:08
PROVIDERS: ADMIT Hospitalist; ATTEND Hospitalist
DX: G45.9 Transient cerebral ischemic attack, unspecified (principal); F10.27 Alcohol dependence with alcohol-induced persisting dementia; F17.210 Nicotine dependence, cigarettes, uncomplicated; I10 Essential (primary) hypertension; I35.0 Nonrheumatic aortic (valve) stenosis; I48.0 Paroxysmal atrial fibrillation; R29.6 Repeated falls; R47.81 Slurred speech; R53.1 Weakness; S72.001D Fracture of unspecified part of neck of right femur, subsequent encounter for closed fracture with routine healing; W19.XXXD Unspecified fall, subsequent encounter; Z91.81 History of falling; Z79.899 Other long term (current) drug therapy; Z82.5 Family history of asthma and other chronic lower respiratory diseases; Z83.3 Family history of diabetes mellitus; Z96.641 Presence of right artificial hip joint; Z82.49 Family history of ischemic heart disease and other diseases of the circulatory system; Z79.82 Long term (current) use of aspirin
CPT/HCPCS: 36415; 70450; 71046; 72170; 80053; 80061; 83605; 83735; 84484; 85025; 85610; 85730; 93005; 93880; 94640; 94760; 96360; 96361; 99285